=== PATIENT | female | born 1980 | race Caucasian/White ===

== ENCOUNTER 2018-07-17 11:04 | Outpatient (CLI) | payer OTHER, SELFPAY | END 2018-07-17 11:24 | PROVIDERS: PCP Internal Medicine; Visit Provider Advanced Practice Midwife | DX: Z34.91 Encounter for supervision of normal pregnancy, unspecified, first trimester (principal) | CPT/HCPCS: 36415; 86850; 86900; 86901 ==

== ENCOUNTER 2018-09-09 10:29 | Outpatient (CLI) | payer OTHER, SELFPAY ==
[2018-09-09 11:20] LABS: HCT 34.8 % (36.0-46.0); HGB 12.2 g/dL (12.0-15.5); Mean Corp. HGB Concentration 35.1 g/dL (32.0-36.0); Mean Corpuscular Hemoglobin 31.9 pg (27.0-33.0); Mean Corpuscular Volume 90.9 fL (80-95); Mean Platelet Volume 9.3 fL (8.0-11.0); Platelet Count 287 x1000/uL (130-400); RBC 3.83 m/cumm (4.00-5.20); RBC Distribution Width 12.8 % (11.7-14.6); White Blood Cell Count 10.56 k/cumm (4.4-10.8)
== END 2018-09-09 10:49 ==
PROVIDERS: PCP Internal Medicine; Visit Provider Advanced Practice Midwife
DX: Z34.92 Encounter for supervision of normal pregnancy, unspecified, second trimester (principal)
CPT/HCPCS: 36415; 85027

== ENCOUNTER 2018-10-04 09:32 | Outpatient (CLI) | payer OTHER, SELFPAY ==
[2018-10-04 11:41] LABS: *AMPHETAMINES SCREEN URINE Negative (Negative); *BARBITURATES SCREEN URINE Negative (Negative); *BENZODIAZEPINES SCREEN URINE Negative (Negative); Cannabinoids THC Negative (Negative); Cocaine Screen,Urine Negative (Negative); METHADONE URINE SCREEN Negative (Negative); OPIATES URINE SCREEN Negative (Negative); Tricyclic Antidepressants Negative (Negative)
[2018-10-07 11:55] LABS: HIV-1/2 Ag & Ab Screen Negative (NEGAT)
[2018-10-07 12:46] LABS: Syphilis Serology (RPR) Negative (Negative)
== END 2018-10-04 09:52 ==
PROVIDERS: PCP Internal Medicine; Visit Provider Nurse Practitioner
DX: Z34.92 Encounter for supervision of normal pregnancy, unspecified, second trimester (principal); Z11.4 Encounter for screening for human immunodeficiency virus [HIV]; Z11.3 Encounter for screening for infections with a predominantly sexual mode of transmission
CPT/HCPCS: 36415; 80307; 87389; 86592

== ENCOUNTER 2018-11-04 09:12 | Outpatient (CLI) | payer OTHER, SELFPAY ==
[2018-11-04 09:35] LABS: HCT 34.4 % (36.0-46.0); Mean Corp. HGB Concentration 34.9 g/dL (32.0-36.0); Mean Corpuscular Hemoglobin 32.5 pg (27.0-33.0); Mean Corpuscular Volume 93.2 fL (80-95); Mean Platelet Volume 9.4 fL (8.0-11.0); Platelet Count 313 x1000/uL (130-400); RBC 3.69 m/cumm (4.00-5.20); RBC Distribution Width 13.1 % (11.7-14.6); White Blood Cell Count 13.27 k/cumm (4.4-10.8)
[2018-11-04 09:41] LABS: Hemoglobin A1C 4.9 % (4.5-6.2)
== END 2018-11-04 09:32 ==
PROVIDERS: PCP Internal Medicine; Visit Provider Advanced Practice Midwife
DX: Z34.92 Encounter for supervision of normal pregnancy, unspecified, second trimester (principal)
CPT/HCPCS: 36415; 85027; 83036

== ENCOUNTER 2019-01-20 10:08 | Outpatient (CLI) | payer OTHER, SELFPAY ==
[2019-01-20 10:33] LABS: HCT 34.6 % (36.0-46.0); Mean Corp. HGB Concentration 34.7 g/dL (32.0-36.0); Mean Corpuscular Hemoglobin 32.1 pg (27.0-33.0); Mean Corpuscular Volume 92.5 fL (80-95); Platelet Count 267 x1000/uL (130-400); RBC 3.74 m/cumm (4.00-5.20); RBC Distribution Width 12.9 % (11.7-14.6); White Blood Cell Count 10.55 k/cumm (4.4-10.8)
[2019-01-20 11:26] LABS: Glucose 77 mg/dL (70-100)
== END 2019-01-20 10:28 ==
PROVIDERS: PCP Internal Medicine; Visit Provider Advanced Practice Midwife
DX: Z34.90 Encounter for supervision of normal pregnancy, unspecified, unspecified trimester (principal)
CPT/HCPCS: 36415; 82947; 85027; 83036

== ENCOUNTER 2019-01-20 12:16 | Outpatient (REF) | payer OTHER, SELFPAY | END 2019-01-20 12:36 | LOC: LBN 12:16 | PROVIDERS: PCP Internal Medicine; Visit Provider Advanced Practice Midwife | DX: Z34.90 Encounter for supervision of normal pregnancy, unspecified, unspecified trimester (principal) | CPT/HCPCS: 87081 ==

== ENCOUNTER 2019-02-20 08:44 | Outpatient (CLI) | payer OTHER, SELFPAY ==
[2019-02-20 09:14] LABS: HCT 38.1 % (36.0-46.0); Mean Corp. HGB Concentration 34.1 g/dL (32.0-36.0); Mean Corpuscular Hemoglobin 31.2 pg (27.0-33.0); Mean Corpuscular Volume 91.4 fL (80-95); Platelet Count 246 x1000/uL (130-400); RBC 4.17 m/cumm (4.00-5.20); White Blood Cell Count 9.26 k/cumm (4.4-10.8)
[2019-02-20 09:56] LABS: PROTEIN 9.4 mg/dL
[2019-02-20 09:59] LABS: COMMENT (LAB VIEW ONLY) 58.76 mg/dL; Prot/Crea Ur Ratio 0.15
[2019-02-20 10:12] LABS: ALT 230 U/L (12-78); AST 106 U/L (15-37); Albumin 2.8 g/dL (3.4-5.0); Alkaline Phosphatase 131 U/L (46-116); Bilirubin, Direct 0.15 mg/dL (0.00-0.20); Bilirubin, Total 0.4 mg/dL (0.2-1.0); CREATININE 0.77 mg/dL (0.55-1.02); Total Protein 7.2 g/dL (6.4-8.2)
[2019-02-20 11:37] LABS: Glucose 84 mg/dL (70-100)
== END 2019-02-20 09:04 ==
PROVIDERS: PCP Internal Medicine; Visit Provider Advanced Practice Midwife
DX: Z34.93 Encounter for supervision of normal pregnancy, unspecified, third trimester (principal); O13.9 Gestational [pregnancy-induced] hypertension without significant proteinuria, unspecified trimester
CPT/HCPCS: 36415; 80076; 82947; 85027; 82565; 84156; 84550

== ENCOUNTER 2019-02-20 11:40 | Inpatient (IN) | payer OTHER, SELFPAY ==
[2019-02-20] MEDS: Lactated Ringers 1,000 ML 30 ML IV (14:05)
[2019-02-20] MEDS: Normal Saline Flush 10 ML SYR IVP (15:21)
[2019-02-20] MEDS: Penicillin G POT. 5,000,000 UNITS in Normal Saline 100 ML 200 UNITS IVPB (15:28)
[2019-02-20 17:00] LABS: HCT 36.6 % (36.0-46.0); HGB 12.7 g/dL (12.0-15.5); Mean Corp. HGB Concentration 34.7 g/dL (32.0-36.0); Mean Corpuscular Hemoglobin 31.8 pg (27.0-33.0); Mean Corpuscular Volume 91.5 fL (80-95); Mean Platelet Volume 11.1 fL (8.0-11.0); Platelet Count 240 x1000/uL (130-400); RBC Distribution Width 12.9 % (11.7-14.6); White Blood Cell Count 9.45 k/cumm (4.4-10.8)
[2019-02-20 17:08] LABS: Glucose 119 mg/dL (70-100)
[2019-02-20 17:11] LABS: CREATININE 0.71 mg/dL (0.55-1.02); Uric Acid 6.6 mg/dL (2.6-6.0)
[2019-02-20 17:47] LABS: ALT 211 U/L (12-78); AST 97 U/L (15-37); Albumin 2.7 g/dL (3.4-5.0); Alkaline Phosphatase 122 U/L (46-116); Bilirubin, Direct 0.13 mg/dL (0.00-0.20); Bilirubin, Total 0.3 mg/dL (0.2-1.0); Total Protein 7.5 g/dL (6.4-8.2)
[2019-02-20] MEDS: miSOPROStol 25 MCG TAB SL (20:00)
[2019-02-21 02:24] LABS: Abs Immature Grans 0.06 k/cumm (0.0-0.09); Absolute Basophil Count 0.02 k/cumm (0.0-0.2); Absolute Eosinophil Count 0.02 k/cumm (0.0-0.7); Absolute Monocyte Count 1.14 k/cumm (0.11-0.7); Basophils % 0.1; Eosinophils % 0.1; HCT 36.9 % (36.0-46.0); HGB 12.8 g/dL (12.0-15.5); Immature Grans % 0.3; Lymphocytes % 10.2; Mean Corp. HGB Concentration 34.7 g/dL (32.0-36.0); Mean Corpuscular Hemoglobin 31.6 pg (27.0-33.0); Mean Corpuscular Volume 91.1 fL (80-95); Monocytes % 6.4; Neutrophils % 82.9; Platelet Count 230 x1000/uL (130-400); RBC 4.05 m/cumm (4.00-5.20); RBC Distribution Width 12.9 % (11.7-14.6)
[2019-02-21 02:25] LABS: Absolute Lymphocyte Count 1.82 k/cumm (1.2-3.4); Absolute Neutrophil Count 14.76 k/cumm (1.2-6.7)
[2019-02-21 02:34] LABS: ALT 231 U/L (12-78); AST 109 U/L (15-37); Albumin 2.7 g/dL (3.4-5.0); Alkaline Phosphatase 121 U/L (46-116); Anion Gap 13.7 mmol/L (3-11); BUN 9 mg/dL (7-18); Bilirubin, Total 0.5 mg/dL (0.2-1.0); CO2 21.3 mmol/L (21.0-32.0); CREATININE 0.64 mg/dL (0.55-1.02); Chloride 101 mmol/L (98-107); Glucose 82 mg/dL (70-100); Potassium 3.9 mmol/L (3.5-5.1); Sodium 136 mmol/L (136-145); Total Protein 7.3 g/dL (6.4-8.2)
[2019-02-21] MEDS: Normal Saline Flush 10 ML SYR IVP ×2 (05:06→10:49)
--- NOTE | 2019-02-21 07:37 | PGE_ITS ---
Date of Service Date of service: 02/20/19 Time of Service: 18:00 Assessment and Plan (1) : Current visit: No Status: Acute (2) Elevated liver enzymes: Current visit: Yes Status: Acute Certainly preeclampsia and HELLP syndrome are a consideration but in light of the fact that she is essentially normotensive other considerations could be cholestasis and acute fatty liver. Acute fatty liver also seems less likely. For now we will proceed with induction with misoprostol, cervical ripening balloon and eventually pitocin. Should her blood pressures become elevated or should we have any other indiction for preeclampsia will start on magnesium sulfate. Subjective Interval history since last seen: I was requested to evaluate the patient for elevated liver enzymes. She was found to have mildly elevated blodo pressure in the 130s on a couple of occasions. She has been asymptomatic denying headache or visual changes. She did have laboratory studies performed showing normal platelets and ALT and AST were elevated to 231 and 121. Protein/creatinine ratio was normal. She was admitted for induction of labor and since admission has been normotensive. Her course to this point has been uncomplicated. She is generally healthy with no chronic medical problems. Objective Objective Clinical Data: Abnormal lab results 02/20/19 02/20/19 02/20/19 Range/Units 16:43 16:43 16:43 WBC (4.4-10.8) k/cumm MPV 11.1 H (8.0-11.0) fL Absolute Neutrophils (1.2-6.7) k/cumm Absolute Monocytes (0.11-0.7) k/cumm Anion Gap (3-11) mmol/L Glucose 119 H (70-100) mg/dL Uric Acid 6.6 H (2.6-6.0) mg/dL AST 97 H (15-37) U/L ALT 211 H (12-78) U/L Alkaline Phosphatase 122 H (46-116) U/L Albumin 2.7 L (3.4-5.0) g/dL 02/21/19 02/21/19 Range/Units 02:07 02:07 WBC 17.80 H D (4.4-10.8) k/cumm MPV (8.0-11.0) fL Absolute Neutrophils 14.76 H (1.2-6.7) k/cumm Absolute Monocytes 1.14 H (0.11-0.7) k/cumm Anion Gap 13.7 H (3-11) mmol/L Glucose (70-100) mg/dL Uric Acid (2.6-6.0) mg/dL AST 109 H (15-37) U/L ALT 231 H (12-78) U/L Alkaline Phosphatase 121 H (46-116) U/L Albumin 2.7 L (3.4-5.0) g/dL Intake & Output 02/20/19 02/20/19 02/21/19 11:59 23:59 11:59 Intake Total 50 / 50 50 / 50 Balance 50 / 50 50 / 50 Intake: IV 50 / 50 50 / 50 Laboratory Results WBC 17.80 k/cumm (4.4-10.8) H D 02/21/19 02:07 RBC 4.05 m/cumm (4.00-5.20) 02/21/19 02:07 Hgb 12.8 g/dL (12.0-15.5) 02/21/19 02:07 Hct 36.9 % (36.0-46.0) 02/21/19 02:07 MCV 91.1 fL (80-95) 02/21/19 02:07 MCH 31.6 pg (27.0-33.0) 02/21/19 02:07 MCHC 34.7 g/dL (32.0-36.0) 02/21/19 02:07 RDW 12.9 % (11.7-14.6) 02/21/19 02:07 Plt Count 230 x1000/uL (130-400) 02/21/19 02:07 MPV 11.0 fL (8.0-11.0) 02/21/19 02:07 Immature Gran % 0.3 02/21/19 02:07 Neutrophils % 82.9 02/21/19 02:07 Lymphocytes % 10.2 02/21/19 02:07 Monocytes % 6.4 02/21/19 02:07 Eosinophils % 0.1 02/21/19 02:07 Basophils % 0.1 02/21/19 02:07 Absolute Neutrophils 14.76 k/cumm (1.2-6.7) H 02/21/19 02:07 Absolute Lymphocytes 1.82 k/cumm (1.2-3.4) 02/21/19 02:07 Absolute Monocytes 1.14 k/cumm (0.11-0.7) H 02/21/19 02:07 Absolute Eosinophils 0.02 k/cumm (0.0-0.7) 02/21/19 02:07 Absolute Basophils 0.02 k/cumm (0.0-0.2) 02/21/19 02:07 Sodium 136 mmol/L (136-145) 02/21/19 02:07 Potassium 3.9 mmol/L (3.5-5.1) 02/21/19 02:07 Chloride 101 mmol/L (98-107) 02/21/19 02:07 Carbon Dioxide 21.3 mmol/L (21.0-32.0) 02/21/19 02:07 Anion Gap 13.7 mmol/L (3-11) H 02/21/19 02:07 BUN 9 mg/dL (7-18) 02/21/19 02:07 Creatinine 0.64 mg/dL (0.55-1.02) 02/21/19 02:07 Estimated GFR/1.73 m2 >= 60.00 (mL/min/1.73m2) 02/21/19 02:07 Glucose 82 mg/dL (70-100) 02/21/19 02:07 Uric Acid Cancelled 02/20/19 Unknown Calcium 9.0 mg/dL (8.5-10.1) 02/21/19 02:07 Total Bilirubin 0.5 mg/dL (0.2-1.0) 02/21/19 02:07 Conjugated Bilirubin Cancelled 02/20/19 Unknown AST 109 U/L (15-37) H 02/21/19 02:07 ALT 231 U/L (12-78) H 02/21/19 02:07 Alkaline Phosphatase 121 U/L (46-116) H 02/21/19 02:07 Total Protein 7.3 g/dL (6.4-8.2) 02/21/19 02:07 Albumin 2.7 g/dL (3.4-5.0) L 02/21/19 02:07 Ur Random Creatinine Cancelled 02/20/19 16:30 U Random Total Protein Cancelled 02/20/19 16:30 U [place] Prot/Creat Ratio Cancelled 02/20/19 16:30 Patient ABO/Rh O Positive 02/20/19 16:43 Antibody Screen Negative 02/20/19 16:43
--- NOTE | 2019-02-21 07:51 | W.PM.PROGNOT ---
Date of Service Date of service: 02/21/19 Time of Service: 07:51 Assessment and Plan (1) Elevated liver enzymes: Current visit: Yes Status: Acute (2) : Current visit: No Status: Acute Plan to start pitocin this morning to continue induction of labor. The remainder of the plan remains unchanged. Will consider magnesium if blood pressures become elevated. section for usual indications. Repeat labs later this morning. Subjective Interval history since last seen: Cervical ripening balloon was expelled this morning and cervix is now 4 cm in dilatation. She is having regular and intermittently painful contractions. She has been normotensive overnight and continues to have no symptoms suggestive of preeclampsia. Laboratory studies have remained unchanged and we will continue to check every 8 hours for now. Exam Resp Auscultation: clear to auscultation bilaterally Cardio Rate: regular rate Rhythm: regular rhythm Objective Objective Clinical Data: Abnormal lab results 02/20/19 02/20/19 02/20/19 Range/Units 16:43 16:43 16:43 WBC (4.4-10.8) k/cumm MPV 11.1 H (8.0-11.0) fL Absolute Neutrophils (1.2-6.7) k/cumm Absolute Monocytes (0.11-0.7) k/cumm Anion Gap (3-11) mmol/L Glucose 119 H (70-100) mg/dL Uric Acid 6.6 H (2.6-6.0) mg/dL AST 97 H (15-37) U/L ALT 211 H (12-78) U/L Alkaline Phosphatase 122 H (46-116) U/L Albumin 2.7 L (3.4-5.0) g/dL 02/21/19 02/21/19 Range/Units 02:07 02:07 WBC 17.80 H D (4.4-10.8) k/cumm MPV (8.0-11.0) fL Absolute Neutrophils 14.76 H (1.2-6.7) k/cumm Absolute Monocytes 1.14 H (0.11-0.7) k/cumm Anion Gap 13.7 H (3-11) mmol/L Glucose (70-100) mg/dL Uric Acid (2.6-6.0) mg/dL AST 109 H (15-37) U/L ALT 231 H (12-78) U/L Alkaline Phosphatase 121 H (46-116) U/L Albumin 2.7 L (3.4-5.0) g/dL Intake & Output 02/20/19 02/20/19 02/21/19 11:59 23:59 11:59 Intake Total 50 / 50 50 / 50 Balance 50 / 50 50 / 50 Intake: IV 50 / 50 50 / 50 Laboratory Results WBC 17.80 k/cumm (4.4-10.8) H D 02/21/19 02:07 RBC 4.05 m/cumm (4.00-5.20) 02/21/19 02:07 Hgb 12.8 g/dL (12.0-15.5) 02/21/19 02:07 Hct 36.9 % (36.0-46.0) 02/21/19 02:07 MCV 91.1 fL (80-95) 02/21/19 02:07 MCH 31.6 pg (27.0-33.0) 02/21/19 02:07 MCHC 34.7 g/dL (32.0-36.0) 02/21/19 02:07 RDW 12.9 % (11.7-14.6) 02/21/19 02:07 Plt Count 230 x1000/uL (130-400) 02/21/19 02:07 MPV 11.0 fL (8.0-11.0) 02/21/19 02:07 Immature Gran % 0.3 02/21/19 02:07 Neutrophils % 82.9 02/21/19 02:07 Lymphocytes % 10.2 02/21/19 02:07 Monocytes % 6.4 02/21/19 02:07 Eosinophils % 0.1 02/21/19 02:07 Basophils % 0.1 02/21/19 02:07 Absolute Neutrophils 14.76 k/cumm (1.2-6.7) H 02/21/19 02:07 Absolute Lymphocytes 1.82 k/cumm (1.2-3.4) 02/21/19 02:07 Absolute Monocytes 1.14 k/cumm (0.11-0.7) H 02/21/19 02:07 Absolute Eosinophils 0.02 k/cumm (0.0-0.7) 02/21/19 02:07 Absolute Basophils 0.02 k/cumm (0.0-0.2) 02/21/19 02:07 Sodium 136 mmol/L (136-145) 02/21/19 02:07 Potassium 3.9 mmol/L (3.5-5.1) 02/21/19 02:07 Chloride 101 mmol/L (98-107) 02/21/19 02:07 Carbon Dioxide 21.3 mmol/L (21.0-32.0) 02/21/19 02:07 Anion Gap 13.7 mmol/L (3-11) H 02/21/19 02:07 BUN 9 mg/dL (7-18) 02/21/19 02:07 Creatinine 0.64 mg/dL (0.55-1.02) 02/21/19 02:07 Estimated GFR/1.73 m2 >= 60.00 (mL/min/1.73m2) 02/21/19 02:07 Glucose 82 mg/dL (70-100) 02/21/19 02:07 Uric Acid Cancelled 02/20/19 Unknown Calcium 9.0 mg/dL (8.5-10.1) 02/21/19 02:07 Total Bilirubin 0.5 mg/dL (0.2-1.0) 02/21/19 02:07 Conjugated Bilirubin Cancelled 02/20/19 Unknown AST 109 U/L (15-37) H 02/21/19 02:07 ALT 231 U/L (12-78) H 02/21/19 02:07 Alkaline Phosphatase 121 U/L (46-116) H 02/21/19 02:07 Total Protein 7.3 g/dL (6.4-8.2) 02/21/19 02:07 Albumin 2.7 g/dL (3.4-5.0) L 02/21/19 02:07 Ur Random Creatinine Cancelled 02/20/19 16:30 U Random Total Protein Cancelled 02/20/19 16:30 U [place] Prot/Creat Ratio Cancelled 02/20/19 16:30 Patient ABO/Rh O Positive 02/20/19 16:43 Antibody Screen Negative 02/20/19 16:43
[2019-02-21 09:05] LABS: HGB 12.7 g/dL (12.0-15.5); Mean Corp. HGB Concentration 34.3 g/dL (32.0-36.0); Mean Corpuscular Hemoglobin 31.6 pg (27.0-33.0); Platelet Count 235 x1000/uL (130-400); RBC 4.02 m/cumm (4.00-5.20)
[2019-02-21 09:19] LABS: ALT 273 U/L (12-78); AST 140 U/L (15-37); Albumin 2.8 g/dL (3.4-5.0); Alkaline Phosphatase 128 U/L (46-116); Anion Gap 13.1 mmol/L (3-11); BUN 9 mg/dL (7-18); Bilirubin, Total 0.6 mg/dL (0.2-1.0); CO2 20.9 mmol/L (21.0-32.0); CREATININE 0.67 mg/dL (0.55-1.02); Chloride 100 mmol/L (98-107); Glucose 85 mg/dL (70-100); Sodium 134 mmol/L (136-145); Total Protein 7.5 g/dL (6.4-8.2)
--- NOTE | 2019-02-21 10:12 | PGE_ITS ---
Date of Service Date of service: 02/21/19 Time of Service: 10:10 Assessment and Plan (1) HELLP (hemolytic anemia/elev liver enzymes/low platelets in ): Current visit: Yes Status: Acute It is likely that the elevation in LFTs represent HELLP syndrome. Will start on Magnesium sulfate infusion at this point and continue serial laboratory studies. Subjective Interval history since last seen: The patient was seen and evaluated. Most recent blood pressure was 140/82. Last laboratory studies show stable platelets but LFTs are trending upward. She continues to be asymptomatic. Objective Objective Clinical Data: Abnormal lab results 02/20/19 02/20/19 02/20/19 Range/Units 16:43 16:43 16:43 WBC (4.4-10.8) k/cumm MPV 11.1 H (8.0-11.0) fL Absolute Neutrophils (1.2-6.7) k/cumm Absolute Monocytes (0.11-0.7) k/cumm Sodium (136-145) mmol/L Carbon Dioxide (21.0-32.0) mmol/L Anion Gap (3-11) mmol/L Glucose 119 H (70-100) mg/dL Uric Acid 6.6 H (2.6-6.0) mg/dL AST 97 H (15-37) U/L ALT 211 H (12-78) U/L Alkaline Phosphatase 122 H (46-116) U/L Albumin 2.7 L (3.4-5.0) g/dL 02/21/19 02/21/19 02/21/19 Range/Units 02:07 02:07 08:45 WBC 17.80 H D (4.4-10.8) k/cumm MPV (8.0-11.0) fL Absolute Neutrophils 14.76 H (1.2-6.7) k/cumm Absolute Monocytes 1.14 H (0.11-0.7) k/cumm Sodium 134 L (136-145) mmol/L Carbon Dioxide 20.9 L (21.0-32.0) mmol/L Anion Gap 13.7 H 13.1 H (3-11) mmol/L Glucose (70-100) mg/dL Uric Acid (2.6-6.0) mg/dL AST 109 H 140 H (15-37) U/L ALT 231 H 273 H (12-78) U/L Alkaline Phosphatase 121 H 128 H (46-116) U/L Albumin 2.7 L 2.8 L (3.4-5.0) g/dL 02/21/19 Range/Units 08:45 WBC 17.90 H (4.4-10.8) k/cumm MPV (8.0-11.0) fL Absolute Neutrophils (1.2-6.7) k/cumm Absolute Monocytes (0.11-0.7) k/cumm Sodium (136-145) mmol/L Carbon Dioxide (21.0-32.0) mmol/L Anion Gap (3-11) mmol/L Glucose (70-100) mg/dL Uric Acid (2.6-6.0) mg/dL AST (15-37) U/L ALT (12-78) U/L Alkaline Phosphatase (46-116) U/L Albumin (3.4-5.0) g/dL Intake & Output 02/20/19 02/20/19 02/21/19 11:59 23:59 11:59 Intake Total 50 / 50 100 / 100 Balance 50 / 50 100 / 100 Intake: IV 50 / 50 100 / 100 Laboratory Results WBC 17.90 k/cumm (4.4-10.8) H 02/21/19 08:45 RBC 4.02 m/cumm (4.00-5.20) 02/21/19 08:45 Hgb 12.7 g/dL (12.0-15.5) 02/21/19 08:45 Hct 37.0 % (36.0-46.0) 02/21/19 08:45 MCV 92.0 fL (80-95) 02/21/19 08:45 MCH 31.6 pg (27.0-33.0) 02/21/19 08:45 MCHC 34.3 g/dL (32.0-36.0) 02/21/19 08:45 RDW 13.0 % (11.7-14.6) 02/21/19 08:45 Plt Count 235 x1000/uL (130-400) 02/21/19 08:45 MPV 11.0 fL (8.0-11.0) 02/21/19 08:45 Immature Gran % 0.3 02/21/19 02:07 Neutrophils % 82.9 02/21/19 02:07 Lymphocytes % 10.2 02/21/19 02:07 Monocytes % 6.4 02/21/19 02:07 Eosinophils % 0.1 02/21/19 02:07 Basophils % 0.1 02/21/19 02:07 Absolute Neutrophils 14.76 k/cumm (1.2-6.7) H 02/21/19 02:07 Absolute Lymphocytes 1.82 k/cumm (1.2-3.4) 02/21/19 02:07 Absolute Monocytes 1.14 k/cumm (0.11-0.7) H 02/21/19 02:07 Absolute Eosinophils 0.02 k/cumm (0.0-0.7) 02/21/19 02:07 Absolute Basophils 0.02 k/cumm (0.0-0.2) 02/21/19 02:07 Sodium 134 mmol/L (136-145) L 02/21/19 08:45 Potassium 4.0 mmol/L (3.5-5.1) 02/21/19 08:45 Chloride 100 mmol/L (98-107) 02/21/19 08:45 Carbon Dioxide 20.9 mmol/L (21.0-32.0) L 02/21/19 08:45 Anion Gap 13.1 mmol/L (3-11) H 02/21/19 08:45 BUN 9 mg/dL (7-18) 02/21/19 08:45 Creatinine 0.67 mg/dL (0.55-1.02) 02/21/19 08:45 Estimated GFR/1.73 m2 >= 60.00 (mL/min/1.73m2) 02/21/19 08:45 Glucose 85 mg/dL (70-100) 02/21/19 08:45 Uric Acid Cancelled 02/20/19 Unknown Calcium 9.0 mg/dL (8.5-10.1) 02/21/19 08:45 Total Bilirubin 0.6 mg/dL (0.2-1.0) 02/21/19 08:45 Conjugated Bilirubin Cancelled 02/20/19 Unknown AST 140 U/L (15-37) H 02/21/19 08:45 ALT 273 U/L (12-78) H 02/21/19 08:45 Alkaline Phosphatase 128 U/L (46-116) H 02/21/19 08:45 Total Protein 7.5 g/dL (6.4-8.2) 02/21/19 08:45 Albumin 2.8 g/dL (3.4-5.0) L 02/21/19 08:45 Ur Random Creatinine Cancelled 02/20/19 16:30 U Random Total Protein Cancelled 02/20/19 16:30 U [place] Prot/Creat Ratio Cancelled 02/20/19 16:30 Patient ABO/Rh O Positive 02/20/19 16:43 Antibody Screen Negative 02/20/19 16:43
[2019-02-21] MEDS: MAGNESIUM SULFATE 20 GM/500 ML BAG IV (19:40)
[2019-02-21 19:50] LABS: HCT 36.1 % (36.0-46.0); HGB 12.5 g/dL (12.0-15.5); Mean Corp. HGB Concentration 34.6 g/dL (32.0-36.0); Mean Corpuscular Hemoglobin 31.8 pg (27.0-33.0); Mean Corpuscular Volume 91.9 fL (80-95); Mean Platelet Volume 10.9 fL (8.0-11.0); Platelet Count 224 x1000/uL (130-400); RBC 3.93 m/cumm (4.00-5.20); RBC Distribution Width 13.1 % (11.7-14.6); White Blood Cell Count 21.06 k/cumm (4.4-10.8)
[2019-02-21 20:01] LABS: ALT 323 U/L (12-78); AST 176 U/L (15-37); Albumin 2.7 g/dL (3.4-5.0); Alkaline Phosphatase 132 U/L (46-116); Anion Gap 16.5 mmol/L (3-11); BUN 7 mg/dL (7-18); Bilirubin, Total 0.7 mg/dL (0.2-1.0); CO2 17.5 mmol/L (21.0-32.0); CREATININE 0.67 mg/dL (0.55-1.02); Calcium 7.6 mg/dL (8.5-10.1); Chloride 97 mmol/L (98-107); Glucose 76 mg/dL (70-100); Potassium 3.7 mmol/L (3.5-5.1); Sodium 131 mmol/L (136-145); Total Protein 7.6 g/dL (6.4-8.2)
--- NOTE | 2019-02-21 21:01 | W.PM.PROGNOT ---
Date of Service Date of service: 02/21/19 Time of Service: 21:01 Assessment and Plan (1) HELLP (hemolytic anemia/elev liver enzymes/low platelets in ): Current visit: Yes Status: Acute I reviewed my concerns with the patient and her . She is greater than 24 hours with ruptured membranes and has an increased risk of intramniotic infection. Laboratory studies do indicate worsening trending in terms of her LFTs and she has made essentially no progress in her labor throughout the day. My recommendation at this point is to proceed with section. Risks of surgery including hemorrhage, infection and injury to other organs such as bowel and bladder were reviewed. All questions were answered to the patient's satisfaction and consent was obtained. (2) Severe preeclampsia: Current visit: Yes Status: Acute Subjective Interval history since last seen: Patient seen and evaluated. I did examine her around 5 pm and cervix was 5 cm at that time. She was rechecked at approximatley 8 pm with no change and IUPC was placed. Pitocin is at 16 mu/min and contractions have been adequate. Repeat laboratory studies show an elevation in WBC count and liver enzymes continue to trend upward. The heart tracing is category I. Objective Objective Clinical Data: Abnormal lab results 02/21/19 02/21/19 02/21/19 Range/Units 02:07 02:07 08:45 WBC 17.80 H D (4.4-10.8) k/cumm RBC (4.00-5.20) m/cumm Absolute Neutrophils 14.76 H (1.2-6.7) k/cumm Absolute Monocytes 1.14 H (0.11-0.7) k/cumm Sodium 134 L (136-145) mmol/L Chloride (98-107) mmol/L Carbon Dioxide 20.9 L (21.0-32.0) mmol/L Anion Gap 13.7 H 13.1 H (3-11) mmol/L Calcium (8.5-10.1) mg/dL AST 109 H 140 H (15-37) U/L ALT 231 H 273 H (12-78) U/L Alkaline Phosphatase 121 H 128 H (46-116) U/L Albumin 2.7 L 2.8 L (3.4-5.0) g/dL 02/21/19 02/21/19 02/21/19 Range/Units 08:45 19:40 19:40 WBC 17.90 H 21.06 H (4.4-10.8) k/cumm RBC 3.93 L (4.00-5.20) m/cumm Absolute Neutrophils (1.2-6.7) k/cumm Absolute Monocytes (0.11-0.7) k/cumm Sodium 131 L (136-145) mmol/L Chloride 97 L (98-107) mmol/L Carbon Dioxide 17.5 L (21.0-32.0) mmol/L Anion Gap 16.5 H (3-11) mmol/L Calcium 7.6 L (8.5-10.1) mg/dL AST 176 H (15-37) U/L ALT 323 H (12-78) U/L Alkaline Phosphatase 132 H (46-116) U/L Albumin 2.7 L (3.4-5.0) g/dL Intake & Output 02/20/19 02/21/19 02/21/19 23:59 11:59 23:59 Intake Total 50 / 50 150 / 250 100 / 250 Balance 50 / 50 150 / 250 100 / 250 Intake: IV 50 / 50 150 / 250 100 / 250 Laboratory Results WBC 21.06 k/cumm (4.4-10.8) H 02/21/19 19:40 RBC 3.93 m/cumm (4.00-5.20) L 02/21/19 19:40 Hgb 12.5 g/dL (12.0-15.5) 02/21/19 19:40 Hct 36.1 % (36.0-46.0) 02/21/19 19:40 MCV 91.9 fL (80-95) 02/21/19 19:40 MCH 31.8 pg (27.0-33.0) 02/21/19 19:40 MCHC 34.6 g/dL (32.0-36.0) 02/21/19 19:40 RDW 13.1 % (11.7-14.6) 02/21/19 19:40 Plt Count 224 x1000/uL (130-400) 02/21/19 19:40 MPV 10.9 fL (8.0-11.0) 02/21/19 19:40 Immature Gran % 0.3 02/21/19 02:07 Neutrophils % 82.9 02/21/19 02:07 Lymphocytes % 10.2 02/21/19 02:07 Monocytes % 6.4 02/21/19 02:07 Eosinophils % 0.1 02/21/19 02:07 Basophils % 0.1 02/21/19 02:07 Absolute Neutrophils 14.76 k/cumm (1.2-6.7) H 02/21/19 02:07 Absolute Lymphocytes 1.82 k/cumm (1.2-3.4) 02/21/19 02:07 Absolute Monocytes 1.14 k/cumm (0.11-0.7) H 02/21/19 02:07 Absolute Eosinophils 0.02 k/cumm (0.0-0.7) 02/21/19 02:07 Absolute Basophils 0.02 k/cumm (0.0-0.2) 02/21/19 02:07 Sodium 131 mmol/L (136-145) L 02/21/19 19:40 Potassium 3.7 mmol/L (3.5-5.1) 02/21/19 19:40 Chloride 97 mmol/L (98-107) L 02/21/19 19:40 Carbon Dioxide 17.5 mmol/L (21.0-32.0) L 02/21/19 19:40 Anion Gap 16.5 mmol/L (3-11) H 02/21/19 19:40 BUN 7 mg/dL (7-18) 02/21/19 19:40 Creatinine 0.67 mg/dL (0.55-1.02) 02/21/19 19:40 Estimated GFR/1.73 m2 >= 60.00 (mL/min/1.73m2) 02/21/19 19:40 Glucose 76 mg/dL (70-100) 02/21/19 19:40 Uric Acid Cancelled 02/20/19 Unknown Calcium 7.6 mg/dL (8.5-10.1) L 02/21/19 19:40 Total Bilirubin 0.7 mg/dL (0.2-1.0) 02/21/19 19:40 Conjugated Bilirubin Cancelled 02/20/19 Unknown AST 176 U/L (15-37) H 02/21/19 19:40 ALT 323 U/L (12-78) H 02/21/19 19:40 Alkaline Phosphatase 132 U/L (46-116) H 02/21/19 19:40 Total Protein 7.6 g/dL (6.4-8.2) 02/21/19 19:40 Albumin 2.7 g/dL (3.4-5.0) L 02/21/19 19:40 Ur Random Creatinine Cancelled 02/20/19 16:30 U Random Total Protein Cancelled 02/20/19 16:30 U [place] Prot/Creat Ratio Cancelled 02/20/19 16:30 Patient ABO/Rh O Positive 02/20/19 16:43 Antibody Screen Negative 02/20/19 16:43
[2019-02-21] MEDS: Sodium Citrate 30 ML CUP PO (21:24)
[2019-02-21] MEDS: ceFAZolin 2,000 MG in Normal Saline 100 ML 200 MG IVPB (21:25)
[2019-02-21] MEDS: Lactated Ringers 1,000 ML 30 ML IV (22:00)
[2019-02-21] MEDS: Carboprost 250 MCG/ML AMP (22:26)
[2019-02-22] MEDS: MAGNESIUM SULFATE 20 GM/500 ML BAG IV ×2 (06:38→16:49)
[2019-02-22 07:58] LABS: HCT 32.8 % (36.0-46.0); HGB 11.2 g/dL (12.0-15.5); Mean Corp. HGB Concentration 34.1 g/dL (32.0-36.0); Mean Corpuscular Hemoglobin 31.5 pg (27.0-33.0); Mean Corpuscular Volume 92.4 fL (80-95); Mean Platelet Volume 10.8 fL (8.0-11.0); Platelet Count 219 x1000/uL (130-400); RBC 3.55 m/cumm (4.00-5.20); White Blood Cell Count 21.03 k/cumm (4.4-10.8)
[2019-02-22 08:05] LABS: ALT 320 U/L (12-78); AST 179 U/L (15-37); Albumin 2.2 g/dL (3.4-5.0); Alkaline Phosphatase 107 U/L (46-116); Anion Gap 9.1 mmol/L (3-11); BUN 8 mg/dL (7-18); Bilirubin, Total 0.9 mg/dL (0.2-1.0); CO2 21.9 mmol/L (21.0-32.0); CREATININE 0.64 mg/dL (0.55-1.02); Calcium 6.6 mg/dL (8.5-10.1); Chloride 97 mmol/L (98-107); Glucose 90 mg/dL (70-100); Potassium 3.8 mmol/L (3.5-5.1); Sodium 128 mmol/L (136-145); Total Protein 6.5 g/dL (6.4-8.2)
[2019-02-22 10:04] LABS: Magnesium 6.2 mg/dL (1.8-2.4)
[2019-02-22] MEDS: Normal Saline Flush 10 ML SYR IVP ×2 (10:36→20:03)
[2019-02-22] MEDS: Lactated Ringers 1,000 ML 75 ML IV (10:37)
[2019-02-22] MEDS: Docusate Sodium 100 MG CAP PO (16:51)
--- NOTE | 2019-02-22 17:49 | W.PM.OP ---
Date of service: 02/21/19 Time of Service: 23:00 Operative Note DATE OF PROCEDURE: 02/21/19 PRE-OP DIAGNOSIS: 1.Severe preeclampsia with help syndrome. 2. FTP following IOL POST-OP DIAGNOSIS: same PROCEDURE: Primary low transverse section SURGEON: Seymour Iverson NEW ORDER CLERK: Niecy Monterroso ANESTHESIA: spinal ESTIMATED BLOOD LOSS: 700 PATHOLOGY: none sent COMPLICATIONS: None Patient was transported to: floor Patient's condition: stable Procedure Description: The patient was taken to the operating room and after adequate level of spinal anesthesia was obtained the patient was placed in supine position with a left lateral tilt. The patient was prepped and draped in usual sterile manner. A david catheter had been placed in the bladder draining clear urine. A Pfannenstiel skin incision was then made with a #10 blade scalpel and sharp dissection was carried down to the underlying layer fascia. The fascia was incised in the midline with a scalpel and the incision was carried laterally in either direction with Ríos scissors. The superior and inferior aspects of the fascial incision were dissected off the underlying layer rectus muscles using both blunt and sharp dissection. The rectus muscles were divided in the midline along the linea alba and the peritoneum was entered sharply. The peritoneal incision was extended superiorly to fairly with blunt and sharp dissection. A bladder blade was inserted. The vesicouterine flap was tented up with pickups and incised sharply with Metzenbaum scissors and the incision was carried laterally in either direction with the scissors. The bladder flap was then created digitally. The lower uterine segment was incised in a transverse manner with the scalpel and the incision was carried laterally in either direction by stretch. was found in cephalic presentation and this was a difficult extraction. Forceps were applied as an assist. The was delivered atraumatically. Mouth and nose were suctioned. The cord was clamped and cut. The infant was handed off to the awaiting lan analyst. Uterus was cleared of all clots and debris. The uterine incision was closed with a running lock stitch of #1 chromic. A second indicating layer of #1 chromic in running fashion was used to take the stasis. The vesicouterine flap was reapproximated with running stitch of 3-0 Vicryl. The uterus was returned to the abdomen. The gutters were cleared of all clots and debris. The peritoneum was closed with a running stitch of 2-0 Vicryl. The subfascial space was thoroughly inspected and limited use of the Bovie cautery was used to obtain hemostasis. The fascia was closed with a running stitch of 0 Vicryl. The subcutaneous tissues were closed with interrupted sutures of 3-0 Vicryl. The skin was closed with a running subcuticular stitch for Monocryl and Dermabond was applied. The procedure was concluded at this point. Sponge lap needle counts were correct at the conclusion of the procedure and the patient tolerated the procedure well and was transferred to the floor in stable condition.
--- NOTE | 2019-02-22 17:55 | ROE_ITS ---
Date of service: 02/21/19 Time of Service: 23:00 Operative Note DATE OF PROCEDURE: 02/21/19 PRE-OP DIAGNOSIS: 1.Severe preeclampsia with help syndrome. 2. FTP following IOL POST-OP DIAGNOSIS: same PROCEDURE: Primary low transverse section SURGEON: Seymour Iverson RESEARCH ASSOCIATE PROFESSOR: Niecy Monterroso ANESTHESIA: spinal ESTIMATED BLOOD LOSS: 700 PATHOLOGY: none sent COMPLICATIONS: None Patient was transported to: floor Patient's condition: stable Procedure Description: The patient was taken to the operating room and after adequate level of spinal anesthesia was obtained the patient was placed in supine position with a left lateral tilt. The patient was prepped and draped in usual sterile manner. A david catheter had been placed in the bladder draining clear urine. A Pfannenstiel skin incision was then made with a #10 blade scalpel and sharp dissection was carried down to the underlying layer fascia. The fascia was incised in the midline with a scalpel and the incision was carried laterally in either direction with Ríos scissors. The superior and inferior aspects of the fascial incision were dissected off the underlying layer rectus muscles using both blunt and sharp dissection. The rectus muscles were divided in the midline along the linea alba and the peritoneum was entered sharply. The peritoneal incision was extended superiorly to fairly with blunt a nd sharp dissection. A bladder blade was inserted. The vesicouterine flap was tented up with pickups and incised sharply with Metzenbaum scissors and the incision was carried laterally in either direction with the scissors. The bladder flap was then created digitally. The lower uterine segment was incised in a transverse manner with the scalpel and the incision was carried laterally in either direction by stretch. was found in cephalic presentation and this was a difficult extraction. Forceps were applied as an assist. The infant was delivered atraumatically. Mouth and nose were suctioned. The cord was clamped and cut. The infant was handed off to the awaiting basket patcher. Uterus was cleared of all clots and debris. The uterine incision was closed with a running lock stitch of #1 chromic. A second indicating layer of #1 chromic in running fashion was used to take the stasis. The vesicouterine flap was reapproximated with running stitch of 3-0 Vicryl. The uterus was returned to the abdomen. The gutters were cleared of all clots and debris. The peritoneum was closed with a running stitch of 2-0 Vicryl. The subfascial space was thoroughly inspected and limited use of the Bovie cautery was used to obtain hemostasis. The fascia was closed with a running stitch of 0 Vicryl. The subcutaneous tissues were closed with interrupted sutures of 3-0 Vicryl. The skin was closed with a running subcuticular stitch for Monocryl and Dermabond was applied. The procedure was concluded at this point. Sponge lap needle counts were correct at the conclusion of the procedure and the patient tolerated the procedure well and was transferred to the floor in stable condition.
[2019-02-22] MEDS: Ketorolac 30 MG/ML VIAL IVP (20:02)
[2019-02-23] MEDS: Ketorolac 30 MG/ML VIAL IVP ×4 (02:11→20:12)
[2019-02-23] MEDS: Normal Saline Flush 10 ML SYR IVP ×4 (02:12→20:14)
[2019-02-23 07:28] LABS: HCT 29.1 % (36.0-46.0); HGB 9.8 g/dL (12.0-15.5); Mean Corp. HGB Concentration 33.7 g/dL (32.0-36.0); Mean Corpuscular Hemoglobin 31.6 pg (27.0-33.0); Mean Corpuscular Volume 93.9 fL (80-95); Mean Platelet Volume 10.5 fL (8.0-11.0); Platelet Count 205 x1000/uL (130-400); RBC Distribution Width 13.1 % (11.7-14.6); White Blood Cell Count 12.19 k/cumm (4.4-10.8)
[2019-02-23 08:27] LABS: ALT 313 U/L (12-78); AST 168 U/L (15-37); Albumin 2.1 g/dL (3.4-5.0); Alkaline Phosphatase 104 U/L (46-116); Anion Gap 7.8 mmol/L (3-11); BUN 9 mg/dL (7-18); Bilirubin, Total 0.5 mg/dL (0.2-1.0); CO2 26.2 mmol/L (21.0-32.0); CREATININE 0.62 mg/dL (0.55-1.02); Calcium 7.2 mg/dL (8.5-10.1); Chloride 101 mmol/L (98-107); Glucose 76 mg/dL (70-100); Potassium 3.7 mmol/L (3.5-5.1); Sodium 135 mmol/L (136-145); Total Protein 6.4 g/dL (6.4-8.2)
--- NOTE | 2019-02-23 09:08 | W.PM.PROGNOT ---
Date of Service Date of service: 02/23/19 Time of Service: 09:08 Assessment and Plan (1) Severe preeclampsia: Current visit: No Status: Acute (2) S/P section: Current visit: Yes Status: Acute Magnesium discontinued. Urine output has been good. Blood pressures are all normal range. LFTs this morning show slight trend downward. Will repeat tomorrow morning. I discussed postoperative care and surveillance. I would have the patient follow up in the clinic within one week postoperatively for blood pressure check and repeat laboratory studies. Plan for possible discharge home tomorrow. Subjective Interval history since last seen: Doing well this morning. Magnesium was discontinued last evening. Has been ambulatory within the room. Pain is well controlled. Denies headache or visual changes. Tolerating regular diet. Exam Resp Auscultation: clear to auscultation bilaterally Cardio Rate: regular rate Rhythm: regular rhythm GI Other: Abdomen is soft. Appropriately tender. Incision is C/D/I Objective Objective Clinical Data: Abnormal lab results 02/22/19 02/23/19 02/23/19 Range/Units 07:20 07:04 07:04 WBC 12.19 H D (4.4-10.8) k/cumm RBC 3.10 L (4.00-5.20) m/cumm Hgb 9.8 L (12.0-15.5) g/dL Hct 29.1 L (36.0-46.0) % Sodium 135 L (136-145) mmol/L Calcium 7.2 L (8.5-10.1) mg/dL Magnesium 6.2 H* (1.8-2.4) mg/dL AST 168 H (15-37) U/L ALT 313 H (12-78) U/L Albumin 2.1 L (3.4-5.0) g/dL Vital Signs Pain Level 2 02/23/19 08:00 Intake & Output 02/22/19 02/22/19 02/23/19 11:59 23:59 11:59 Intake Total 1335 / 2235 900 / 2235 Balance 1335 / 2235 900 / 2235 Intake: IV 1335 / 2235 900 / 2235 Laboratory Results WBC 12.19 k/cumm (4.4-10.8) H D 02/23/19 07:04 RBC 3.10 m/cumm (4.00-5.20) L 02/23/19 07:04 Hgb 9.8 g/dL (12.0-15.5) L 02/23/19 07:04 Hct 29.1 % (36.0-46.0) L 02/23/19 07:04 MCV 93.9 fL (80-95) 02/23/19 07:04 MCH 31.6 pg (27.0-33.0) 02/23/19 07:04 MCHC 33.7 g/dL (32.0-36.0) 02/23/19 07:04 RDW 13.1 % (11.7-14.6) 02/23/19 07:04 Plt Count 205 x1000/uL (130-400) 02/23/19 07:04 MPV 10.5 fL (8.0-11.0) 02/23/19 07:04 Immature Gran % 0.3 02/21/19 02:07 Neutrophils % 82.9 02/21/19 02:07 Lymphocytes % 10.2 02/21/19 02:07 Monocytes % 6.4 02/21/19 02:07 Eosinophils % 0.1 02/21/19 02:07 Basophils % 0.1 02/21/19 02:07 Absolute Neutrophils 14.76 k/cumm (1.2-6.7) H 02/21/19 02:07 Absolute Lymphocytes 1.82 k/cumm (1.2-3.4) 02/21/19 02:07 Absolute Monocytes 1.14 k/cumm (0.11-0.7) H 02/21/19 02:07 Absolute Eosinophils 0.02 k/cumm (0.0-0.7) 02/21/19 02:07 Absolute Basophils 0.02 k/cumm (0.0-0.2) 02/21/19 02:07 Sodium 135 mmol/L (136-145) L 02/23/19 07:04 Potassium 3.7 mmol/L (3.5-5.1) 02/23/19 07:04 Chloride 101 mmol/L (98-107) 02/23/19 07:04 Carbon Dioxide 26.2 mmol/L (21.0-32.0) 02/23/19 07:04 Anion Gap 7.8 mmol/L (3-11) 02/23/19 07:04 BUN 9 mg/dL (7-18) 02/23/19 07:04 Creatinine 0.62 mg/dL (0.55-1.02) 02/23/19 07:04 Estimated GFR/1.73 m2 >= 60.00 (mL/min/1.73m2) 02/23/19 07:04 Glucose 76 mg/dL (70-100) 02/23/19 07:04 Uric Acid Cancelled 02/20/19 Unknown Calcium 7.2 mg/dL (8.5-10.1) L 02/23/19 07:04 Magnesium 6.2 mg/dL (1.8-2.4) H* 02/22/19 07:20 Total Bilirubin 0.5 mg/dL (0.2-1.0) 02/23/19 07:04 Conjugated Bilirubin Cancelled 02/20/19 Unknown AST 168 U/L (15-37) H 02/23/19 07:04 ALT 313 U/L (12-78) H 02/23/19 07:04 Alkaline Phosphatase 104 U/L (46-116) 02/23/19 07:04 Total Protein 6.4 g/dL (6.4-8.2) 02/23/19 07:04 Albumin 2.1 g/dL (3.4-5.0) L 02/23/19 07:04 Ur Random Creatinine Cancelled 02/20/19 16:30 U Random Total Protein Cancelled 02/20/19 16:30 U [place] Prot/Creat Ratio Cancelled 02/20/19 16:30 Patient ABO/Rh O Positive 02/20/19 16:43 Antibody Screen Negative 02/20/19 16:43 Crossmatch See Detail 02/20/19 16:43
[2019-02-23] MEDS: Docusate Sodium 100 MG CAP PO (14:37)
[2019-02-24] MEDS: Ketorolac 30 MG/ML VIAL IVP (02:02)
[2019-02-24] MEDS: Normal Saline Flush 10 ML SYR IVP (02:02)
[2019-02-24 06:49] LABS: HCT 29.1 % (36.0-46.0); HGB 9.6 g/dL (12.0-15.5); Mean Corpuscular Hemoglobin 31.2 pg (27.0-33.0); Mean Corpuscular Volume 94.5 fL (80-95); Mean Platelet Volume 10.2 fL (8.0-11.0); Platelet Count 222 x1000/uL (130-400); RBC 3.08 m/cumm (4.00-5.20); RBC Distribution Width 13.2 % (11.7-14.6); White Blood Cell Count 10.25 k/cumm (4.4-10.8)
[2019-02-24 07:19] LABS: ALT 275 U/L (12-78); AST 134 U/L (15-37); Alkaline Phosphatase 93 U/L (46-116); Anion Gap 9.6 mmol/L (3-11); BUN 16 mg/dL (7-18); Bilirubin, Total 0.3 mg/dL (0.2-1.0); CO2 24.4 mmol/L (21.0-32.0); CREATININE 0.68 mg/dL (0.55-1.02); Calcium 8.2 mg/dL (8.5-10.1); Chloride 104 mmol/L (98-107); Glucose 72 mg/dL (70-100); Sodium 138 mmol/L (136-145); Total Protein 6.3 g/dL (6.4-8.2)
--- NOTE | 2019-02-24 07:43 | W.PM.PROGNOT ---
Date of Service Date of service: 02/24/19 Time of Service: 07:43 Assessment and Plan (1) S/P section: Current visit: Yes Status: Acute (2) Severe preeclampsia: Current visit: No Status: Acute (3) HELLP (hemolytic anemia/elev liver enzymes/low platelets in ): Current visit: No Status: Acute Ok to discharge home today. Follow up in the clinic this coming Sunday and will repeat CBC and CMP that day. Today there was a downward trend in her LFTs and blood pressures remained in normal range. Subjective Interval history since last seen: Doing well this morning. No problems overnight. Pain well controlled and has not required narcotics. Ambulatory. Denies headache or visual changes. Objective Objective Clinical Data: Abnormal lab results 02/23/19 02/24/19 02/24/19 Range/Units 07:04 06:40 06:40 RBC 3.08 L (4.00-5.20) m/cumm Hgb 9.6 L (12.0-15.5) g/dL Hct 29.1 L (36.0-46.0) % Sodium 135 L (136-145) mmol/L Calcium 7.2 L 8.2 L (8.5-10.1) mg/dL AST 168 H 134 H (15-37) U/L ALT 313 H 275 H (12-78) U/L Total Protein 6.3 L (6.4-8.2) g/dL Albumin 2.1 L 2.0 L (3.4-5.0) g/dL Vital Signs Pain Level 3 02/24/19 02:02 Laboratory Results WBC 10.25 k/cumm (4.4-10.8) 02/24/19 06:40 RBC 3.08 m/cumm (4.00-5.20) L 02/24/19 06:40 Hgb 9.6 g/dL (12.0-15.5) L 02/24/19 06:40 Hct 29.1 % (36.0-46.0) L 02/24/19 06:40 MCV 94.5 fL (80-95) 02/24/19 06:40 MCH 31.2 pg (27.0-33.0) 02/24/19 06:40 MCHC 33.0 g/dL (32.0-36.0) 02/24/19 06:40 RDW 13.2 % (11.7-14.6) 02/24/19 06:40 Plt Count 222 x1000/uL (130-400) 02/24/19 06:40 MPV 10.2 fL (8.0-11.0) 02/24/19 06:40 Immature Gran % 0.3 02/21/19 02:07 Neutrophils % 82.9 02/21/19 02:07 Lymphocytes % 10.2 02/21/19 02:07 Monocytes % 6.4 02/21/19 02:07 Eosinophils % 0.1 02/21/19 02:07 Basophils % 0.1 02/21/19 02:07 Absolute Neutrophils 14.76 k/cumm (1.2-6.7) H 02/21/19 02:07 Absolute Lymphocytes 1.82 k/cumm (1.2-3.4) 02/21/19 02:07 Absolute Monocytes 1.14 k/cumm (0.11-0.7) H 02/21/19 02:07 Absolute Eosinophils 0.02 k/cumm (0.0-0.7) 02/21/19 02:07 Absolute Basophils 0.02 k/cumm (0.0-0.2) 02/21/19 02:07 Sodium 138 mmol/L (136-145) 02/24/19 06:40 Potassium 4.0 mmol/L (3.5-5.1) 02/24/19 06:40 Chloride 104 mmol/L (98-107) 02/24/19 06:40 Carbon Dioxide 24.4 mmol/L (21.0-32.0) 02/24/19 06:40 Anion Gap 9.6 mmol/L (3-11) 02/24/19 06:40 BUN 16 mg/dL (7-18) D 02/24/19 06:40 Creatinine 0.68 mg/dL (0.55-1.02) 02/24/19 06:40 Estimated GFR/1.73 m2 >= 60.00 (mL/min/1.73m2) 02/24/19 06:40 Glucose 72 mg/dL (70-100) 02/24/19 06:40 Uric Acid Cancelled 02/20/19 Unknown Calcium 8.2 mg/dL (8.5-10.1) L 02/24/19 06:40 Magnesium 6.2 mg/dL (1.8-2.4) H* 02/22/19 07:20 Total Bilirubin 0.3 mg/dL (0.2-1.0) 02/24/19 06:40 Conjugated Bilirubin Cancelled 02/20/19 Unknown AST 134 U/L (15-37) H 02/24/19 06:40 ALT 275 U/L (12-78) H 02/24/19 06:40 Alkaline Phosphatase 93 U/L (46-116) 02/24/19 06:40 Total Protein 6.3 g/dL (6.4-8.2) L 02/24/19 06:40 Albumin 2.0 g/dL (3.4-5.0) L 02/24/19 06:40 Ur Random Creatinine Cancelled 02/20/19 16:30 U Random Total Protein Cancelled 02/20/19 16:30 U [place] Prot/Creat Ratio Cancelled 02/20/19 16:30 Patient ABO/Rh O Positive 02/20/19 16:43 Antibody Screen Negative 02/20/19 16:43 Crossmatch See Detail 02/20/19 16:43
== END 2019-02-24 09:15 | disposition home or self-care (01) | DRG 788 ==
PROVIDERS: Admitting Provider Advanced Practice Midwife; PCP Internal Medicine; Visit Provider Obstetrics & Gynecology
PROC: 10D00Z1 Extraction of Products of Conception, Low, Open Approach (ICD-10-PCS; CPT 59514; principal; 2019-02-21 21:20)
DX: O14.24 HELLP syndrome, complicating childbirth (principal); Z37.0 Single live birth; Z3A.40 40 weeks gestation of pregnancy; O61.0 Failed medical induction of labor; O62.1 Secondary uterine inertia; O48.0 Post-term pregnancy; O99.824 Streptococcus B carrier state complicating childbirth; Z79.82 Long term (current) use of aspirin
CPT/HCPCS: 59514; 36415; 80053; 80076; 82947; 85027; 86850; 86900; 86901; 86920; 99233; NC; 59200; 82565; 83735; 84156; 84550; 85025; J0690; J1885; J2370; J2405; J2540; J2590; J3475; J3490

== ENCOUNTER 2019-02-26 09:30 | Outpatient (CLI) | payer OTHER, SELFPAY | END 2019-02-26 09:50 | PROVIDERS: PCP Internal Medicine; Visit Provider Internal Medicine | DX: Z39.1 Encounter for care and examination of lactating mother (principal) | CPT/HCPCS: E0602 ==

== ENCOUNTER 2019-02-28 08:06 | Outpatient (CLI) | payer OTHER, SELFPAY ==
[2019-02-28 09:19] LABS: Abs Immature Grans 0.04 k/cumm (0.0-0.09); Absolute Basophil Count 0.02 k/cumm (0.0-0.2); Absolute Eosinophil Count 0.11 k/cumm (0.0-0.7); Absolute Lymphocyte Count 1.53 k/cumm (1.2-3.4); Absolute Monocyte Count 0.63 k/cumm (0.11-0.7); Absolute Neutrophil Count 6.54 k/cumm (1.2-6.7); Basophils % 0.2; Eosinophils % 1.2; HCT 33.6 % (36.0-46.0); HGB 11.5 g/dL (12.0-15.5); Immature Grans % 0.5; Lymphocytes % 17.2; Mean Corp. HGB Concentration 34.2 g/dL (32.0-36.0); Mean Corpuscular Volume 93.6 fL (80-95); Mean Platelet Volume 8.9 fL (8.0-11.0); Monocytes % 7.1; Neutrophils % 73.8; Platelet Count 471 x1000/uL (130-400); RBC 3.59 m/cumm (4.00-5.20); RBC Distribution Width 12.8 % (11.7-14.6); White Blood Cell Count 8.87 k/cumm (4.4-10.8)
[2019-02-28 10:17] LABS: ALT 122 U/L (12-78); AST 30 U/L (15-37); Alkaline Phosphatase 91 U/L (46-116); Anion Gap 16.1 mmol/L (3-11); BUN 12 mg/dL (7-18); Bilirubin, Total 0.6 mg/dL (0.2-1.0); CO2 21.9 mmol/L (21.0-32.0); CREATININE 0.59 mg/dL (0.55-1.02); Chloride 102 mmol/L (98-107); Glucose 75 mg/dL (70-100); Potassium 4.2 mmol/L (3.5-5.1); Sodium 140 mmol/L (136-145); Total Protein 7.3 g/dL (6.4-8.2)
== END 2019-02-28 08:26 ==
PROVIDERS: PCP Internal Medicine; Visit Provider Obstetrics & Gynecology
DX: O14.10 Severe pre-eclampsia, unspecified trimester (principal)
CPT/HCPCS: 36415; 80053; 85025

== ENCOUNTER 2020-02-06 01:24 | Outpatient (CLI) | payer OTHER, SELFPAY ==
[2020-02-06 15:21] LABS: Abs Immature Grans 0.02 k/cumm (0.0-0.09); Absolute Basophil Count 0.02 k/cumm (0.0-0.2); Absolute Eosinophil Count 0.27 k/cumm (0.0-0.7); Absolute Lymphocyte Count 2.58 k/cumm (1.2-3.4); Absolute Monocyte Count 0.66 k/cumm (0.11-0.7); Absolute Neutrophil Count 5.57 k/cumm (1.2-6.7); Basophils % 0.2; HCT 38.6 % (36.0-46.0); HGB 13.1 g/dL (12.0-15.5); Immature Grans % 0.2 %; Lymphocytes % 28.3; Mean Corp. HGB Concentration 33.9 g/dL (32.0-36.0); Mean Corpuscular Hemoglobin 31.2 pg (27.0-33.0); Mean Corpuscular Volume 91.9 fL (80-95); Monocytes % 7.2; Neutrophils % 61.1; Platelet Count 350 x1000/uL (130-400); RBC Distribution Width 12.8 % (11.7-14.6); White Blood Cell Count 9.12 k/cumm (4.4-10.8)
[2020-02-06 17:02] LABS: ALT 25 U/L (14-59); AST 18 U/L (15-37); Albumin 3.9 g/dL (3.4-5.0); Alkaline Phosphatase 56 U/L (46-116); Bilirubin, Direct 0.11 mg/dL (0.00-0.20); Bilirubin, Total 0.2 mg/dL (0.2-1.0); FREE T4 1.03 ng/dL (0.76-1.46); TSH 0.01 uIU/mL (0.36-3.74); Total Protein 7.9 g/dL (6.4-8.2)
[2020-02-06 21:41] LABS: T3, Total 130 ng/dL (97-169)
== END 2020-02-06 01:44 ==
PROVIDERS: PCP Family Medicine; Visit Provider Internal Medicine
DX: E05.90 Thyrotoxicosis, unspecified without thyrotoxic crisis or storm (principal)
CPT/HCPCS: 36415; 80076; 84439; 84443; 84480; 85025

== ENCOUNTER 2020-05-04 05:04 | Outpatient (CLI) | payer OTHER, SELFPAY ==
[2020-05-06 04:56] LABS: Vitamin D 25 Total 38.5 ng/ml (30-100)
[2020-05-06 15:23] LABS: Chlamydia Result Negative (Negative); GC Result Negative (Negative)
[2020-05-07 15:07] LABS: Antimullerian Hormone 2.3 ng/mL (0.9-9.5)
== END 2020-05-04 05:24 ==
PROVIDERS: PCP Family Medicine; Visit Provider Obstetrics & Gynecology Reproductive Endocrinology
DX: N97.8 Female infertility of other origin (principal); Z31.89 Encounter for other procreative management
CPT/HCPCS: 36415; 82306; 87491; 87591; 83520; 84439; 84443; 84445; 84480

== ENCOUNTER 2020-07-26 01:39 | Outpatient (CLI) | payer OTHER, SELFPAY ==
[2020-07-26 16:22] LABS: HCG Quant, Pregnancy 226 mIU/mL (1-3)
[2020-07-26 16:26] LABS: FREE T4 1.19 ng/dL (0.76-1.46); TSH 0.02 uIU/mL (0.36-3.74)
[2020-07-26 21:19] LABS: T3, Total 149 ng/dL (97-169)
[2020-07-29 21:46] LABS: Thyroid Stimulating Immunoglob <1.0 TSI index (<=1.3)
== END 2020-07-26 01:59 ==
PROVIDERS: Internal Medicine; Specialist; PCP Family Medicine; Visit Provider Obstetrics & Gynecology Reproductive Endocrinology
DX: E05.90 Thyrotoxicosis, unspecified without thyrotoxic crisis or storm (principal); Z32.00 Encounter for pregnancy test, result unknown
CPT/HCPCS: 36415; 84439; 84443; 84445; 84480; 84702

== ENCOUNTER 2020-07-28 01:14 | Outpatient (CLI) | payer OTHER, SELFPAY ==
[2020-07-28 15:51] LABS: HCG Quant, Pregnancy 499 mIU/mL (1-3)
== END 2020-07-28 01:34 ==
PROVIDERS: Specialist; PCP Family Medicine; Visit Provider Obstetrics & Gynecology Reproductive Endocrinology
DX: Z34.91 Encounter for supervision of normal pregnancy, unspecified, first trimester (principal)
CPT/HCPCS: 36415; 84702

== ENCOUNTER 2020-09-07 01:56 | Outpatient (CLI) | payer OTHER, SELFPAY ==
[2020-09-07 13:15] LABS: Kit/Specimen SENT
[2020-09-07 13:29] LABS: Abs Immature Grans 0.04 10^3/uL (0.0-0.06); Absolute Basophil Count 0.01 10^3/uL (0.0-0.2); Absolute Eosinophil Count 0.05 10^3/uL (0.0-0.7); Absolute Lymphocyte Count 1.71 10^3/uL (1.2-3.4); Absolute Monocyte Count 0.76 10^3/uL (0.1-0.8); Absolute Neutrophil Count 6.53 10^3/uL (1.2-6.7); Basophils % 0.1; Eosinophils % 0.5; HCT 36.7 % (36.0-46.0); Immature Grans % 0.4; Lymphocytes % 18.8; MCH 31.2 pg (27.0-33.0); MCHC 35.4 % (32.0-36.0); MPV 9.2 fL (8.0-11.0); Monocytes % 8.4; Neutrophils % 71.8; Nucleated RBC 0 %; Platelet Count 328 10^3/uL (130-400); RBC 4.17 10^6/uL (3.93-5.22); RDW 11.6 % (11.7-14.6); RDW-SD 37.5 fL
[2020-09-07 13:58] LABS: FREE T4 2.18 ng/dL (0.76-1.46); TSH < 0.01 uIU/mL (0.36-3.74)
[2020-09-09 11:02] LABS: HIV-1/2 Ag & Ab Screen Negative (Negative)
[2020-09-10 17:04] LABS: Thyroid Stimulating Immunoglob <1.0 TSI index (<=1.3)
[2020-09-21 14:35] LABS: Syphilis Total Ab w/Reflex Nonreactive (Nonreactive)
[2020-09-22 15:13] LABS: T3, Total 281 ng/dL (80 - 200)
[2020-09-22 15:35] LABS: Hepatitis C Ab w Rflx HCV PCR Negative (Negative)
[2020-09-22 15:36] LABS: Hepatitis B Surface Ag Negative (Negative)
[2020-09-22 15:37] LABS: Rubella IgG Ab (UVM) Positive
[2020-09-22 15:38] LABS: Varicella IgG Antibody Negative
== END 2020-09-07 02:16 ==
PROVIDERS: Internal Medicine; PCP Family Medicine; Visit Provider Advanced Practice Midwife
DX: E05.90 Thyrotoxicosis, unspecified without thyrotoxic crisis or storm (principal); Z34.91 Encounter for supervision of normal pregnancy, unspecified, first trimester; Z11.4 Encounter for screening for human immunodeficiency virus [HIV]; Z01.84 Encounter for antibody response examination
CPT/HCPCS: 36415; 86787; 86803; 86850; 86900; 86901; 87340; 87389; 84439; 84443; 84445; 84480; 85025; 86762; 86780

== ENCOUNTER 2020-09-07 13:40 | Outpatient (REF) | payer OTHER, SELFPAY ==
--- NOTE | 2020-09-07 11:45 | PAPFT_PTH ---
PATIENT: Zina Crowe LOC: [facility] U#:[id number] AGE/SX: 40/F ROOM: RE09/07/[address]: Marcella Casanova : 1980 BED: DIS: 09/07/2020 SPEC #: [id number] RECD: 09/07/20 17:52 STATUS: CYNDIE REQ #: [id number] KHRIS: 09/07/20 11:[address]: Marcella Casanova DEPT: [facility] [place] Cytology RECD BY: Nguyen Martinez ENTERED: 09/07/20 17:53 SP TYPE: PAPFT OTHR DR: Abhijit Nayak Tissues: 1 - CX/ENDOCX FOR PAP SMEARS Procedures: PAP THIN PREP/[facility] Screening HPV DNA PROBE Comments: [id number] ([id number] [facility])
== END 2020-09-07 14:00 ==
LOC: LBN 13:40
PROVIDERS: PCP Family Medicine; Visit Provider Advanced Practice Midwife
DX: Z12.4 Encounter for screening for malignant neoplasm of cervix (principal); Z11.51 Encounter for screening for human papillomavirus (HPV)
CPT/HCPCS: 88142; 87624

== ENCOUNTER 2020-09-07 14:40 | Outpatient (REF) | payer OTHER, SELFPAY ==
[2020-09-07 15:59] LABS: *AMPHETAMINES SCREEN URINE Negative (Negative); *BARBITURATES SCREEN URINE Negative (Negative); *BENZODIAZEPINES SCREEN URINE Negative (Negative); Cannabinoids THC Negative (Negative); Cocaine Screen,Urine Negative (Negative); METHADONE URINE SCREEN Negative (Negative); OPIATES URINE SCREEN Negative (Negative)
[2020-09-07 16:03] LABS: Tricyclic Antidepressants Negative (Negative)
[2020-09-09 18:32] LABS: Chlamydia amplified RNA Negative (Negative); N gonorrhoeae amplified RNA Negative (Negative); Source VAGINAL
[2020-09-11 11:24] LABS: Buprenorphine Negative; Norbuprenorphine Negative
== END 2020-09-07 15:00 ==
LOC: NCHCN 14:40
PROVIDERS: PCP Family Medicine; Visit Provider Advanced Practice Midwife
DX: Z34.91 Encounter for supervision of normal pregnancy, unspecified, first trimester (principal)
CPT/HCPCS: 80307; 87491; 87591; 87086

== ENCOUNTER 2020-09-29 03:14 | Outpatient (CLI) | payer OTHER, SELFPAY ==
[2020-09-29 11:19] LABS: FREE T4 1.72 ng/dL (0.76-1.46)
[2020-09-29 11:23] LABS: TSH < 0.01 uIU/mL (0.36-3.74)
[2020-09-29 11:40] LABS: T4 16.4 ug/mL (4.7-13.3)
[2020-09-29 18:23] LABS: T3, Total 322 ng/dL (97-169)
== END 2020-09-29 03:34 ==
PROVIDERS: PCP Family Medicine; Visit Provider Internal Medicine
DX: E06.9 Thyroiditis, unspecified (principal)
CPT/HCPCS: 36415; 84436; 84439; 84443; 84480

== ENCOUNTER 2020-10-12 01:59 | Outpatient (CLI) | payer OTHER, SELFPAY ==
[2020-10-13 13:33] LABS: FREE T4 1.72 ng/dL (0.76-1.46)
[2020-10-13 13:36] LABS: TSH < 0.01 uIU/mL (0.36-3.74)
[2020-10-13 16:40] LABS: T3, Total 371 ng/dL (97-169)
== END 2020-10-12 02:19 ==
PROVIDERS: PCP Family Medicine; Visit Provider Internal Medicine
DX: E05.90 Thyrotoxicosis, unspecified without thyrotoxic crisis or storm (principal)
CPT/HCPCS: 36415; 84439; 84443; 84480; 84702

== ENCOUNTER 2020-10-27 04:23 | Outpatient (CLI) | payer OTHER, SELFPAY ==
[2020-10-27 18:49] LABS: FREE T4 1.69 ng/dL (0.76-1.46)
[2020-10-27 18:59] LABS: TSH < 0.01 uIU/mL (0.36-3.74)
[2020-10-27 19:08] LABS: T4 19.8 ug/mL (4.7-13.3)
[2020-10-28 16:24] LABS: T3,Free 6.9 pg/mL (2.8-5.3)
[2020-10-28 16:45] LABS: T3, Total 367 ng/dL (97-169)
== END 2020-10-27 04:43 ==
PROVIDERS: PCP Family Medicine; Visit Provider Internal Medicine
DX: E05.90 Thyrotoxicosis, unspecified without thyrotoxic crisis or storm (principal)
CPT/HCPCS: 36415; 84436; 84439; 84443; 84480; 84481

== ENCOUNTER 2020-11-23 03:15 | Outpatient (CLI) | payer OTHER, SELFPAY ==
[2020-11-23 09:33] LABS: TSH < 0.01 uIU/mL (0.36-3.74)
[2020-11-23 09:43] LABS: T4 16.2 ug/mL (4.7-13.3)
[2020-11-23 17:11] LABS: T3,Free 6.7 pg/mL (2.8-5.3)
[2020-11-23 17:28] LABS: T3, Total 327 ng/dL (97-169)
== END 2020-11-23 03:16 | disposition home or self-care (01) ==
LOC: LBO 03:15
PROVIDERS: PCP Family Medicine; Visit Provider Internal Medicine
DX: E05.90 Thyrotoxicosis, unspecified without thyrotoxic crisis or storm (principal)
CPT/HCPCS: 36415; 84436; 84439; 84443; 84480; 84481

== ENCOUNTER 2020-12-27 04:26 | Outpatient (CLI) | payer OTHER, SELFPAY ==
[2020-12-27 14:34] LABS: FREE T4 1.39 ng/dL (0.76-1.46)
[2020-12-27 14:35] LABS: TSH < 0.01 uIU/mL (0.36-3.74)
[2020-12-27 21:53] LABS: T3,Free 5.5 pg/mL (2.8-5.3)
[2020-12-27 22:06] LABS: T3, Total 322 ng/dL (97-169)
== END 2020-12-27 04:27 | disposition home or self-care (01) ==
LOC: LBO 04:26
PROVIDERS: PCP Family Medicine; Visit Provider Internal Medicine
DX: E05.90 Thyrotoxicosis, unspecified without thyrotoxic crisis or storm (principal)
CPT/HCPCS: 36415; 84439; 84443; 84480; 84481

== ENCOUNTER 2021-01-28 02:31 | Outpatient (CLI) | payer OTHER, SELFPAY ==
[2021-01-28 09:03] LABS: Abs Immature Grans 0.09 10^3/uL (0.0-0.06); Absolute Basophil Count 0.03 10^3/uL (0.0-0.2); Absolute Lymphocyte Count 1.89 10^3/uL (1.2-3.4); Absolute Neutrophil Count 10.58 10^3/uL (1.2-6.7); Basophils % 0.2; Eosinophils % 1.5; HCT 35.8 % (36.0-46.0); HGB 12.3 g/dL (11.2-15.7); Immature Grans % 0.7; Lymphocytes % 13.8; MCH 30.8 pg (27.0-33.0); MCHC 34.4 % (32.0-36.0); MCV 89.5 fL (80-95); MPV 9.2 fL (8.0-11.0); Monocytes % 6.6; Neutrophils % 77.2; Nucleated RBC 0 %; Platelet Count 323 10^3/uL (130-400); RDW 12.5 % (11.7-14.6); RDW-SD 40.8 fL
[2021-01-28 09:07] LABS: Absolute Eosinophil Count 0.21 10^3/uL (0.0-0.7)
[2021-01-28 10:23] LABS: FREE T4 1.54 ng/dL (0.76-1.46)
[2021-01-28 10:24] LABS: TSH < 0.01 uIU/mL (0.36-3.74)
[2021-01-28 17:31] LABS: T3,Free 6.3 pg/mL (2.8-5.3)
== END 2021-01-28 02:32 | disposition home or self-care (01) ==
LOC: LBO 02:32
PROVIDERS: Obstetrics & Gynecology; PCP Family Medicine; Visit Provider Internal Medicine
DX: O99.283 Endocrine, nutritional and metabolic diseases complicating pregnancy, third trimester (principal)
CPT/HCPCS: 36415; 84439; 84443; 84481; 85025

== ENCOUNTER 2021-02-09 01:45 | Outpatient (CLI) | payer OTHER, SELFPAY ==
--- NOTE | 2021-02-09 08:00 | DI.US_ITS ---
EXAM: US OB GUSTABO WEIGHT CLINICAL HISTORY: Growth and GUSTABO,UTERINE FIBROID,D25.9,E05.90. TECHNIQUE: Transabdominal obstetrical ultrasound was performed. COMPARISON: No previous exams were available for comparison FINDINGS: There is a single viable intrauterine gestation with cardiac activity identified-143 bpm The fetus is presently in cephalic position . Amniotic fluid: There is a normal amount of amniotic fluid with an GUSTABO of 13.4cm. Placental location: The placenta is posterior grade 1,with no evidence of placenta previa. Dating parameters place this at approximately 33 weeks and 5 days gestational age, implying LEWIS of March 25, 2021. BPD measures 34 weeks and 1 day HC measures 33 weeks and 4 days AC measures 32 weeks and 5 days FL measures 34 weeks and 3 day Estimated weight is 2196 gm-4 pounds 13 ounces Fetus is at the 68th percentile on the Hadlock scale. IMPRESSION:: Viable 3rd trimester gestation, as described above. DATA REPOSITORY:
== END 2021-02-09 02:05 ==
PROVIDERS: PCP Family Medicine; Visit Provider Obstetrics & Gynecology
DX: O99.283 Endocrine, nutritional and metabolic diseases complicating pregnancy, third trimester (principal); E05.90 Thyrotoxicosis, unspecified without thyrotoxic crisis or storm; Z3A.34 34 weeks gestation of pregnancy
CPT/HCPCS: 76816

== ENCOUNTER 2021-02-28 03:25 | Outpatient (CLI) | payer OTHER, SELFPAY ==
[2021-02-28 13:43] LABS: FREE T4 1.56 ng/dL (0.76-1.46)
[2021-02-28 13:53] LABS: TSH < 0.01 uIU/mL (0.36-3.74)
[2021-02-28 21:31] LABS: T3,Free 6.6 pg/mL (2.8-5.3)
== END 2021-02-28 03:26 | disposition home or self-care (01) ==
PROVIDERS: PCP Family Medicine; Visit Provider Internal Medicine
DX: E05.90 Thyrotoxicosis, unspecified without thyrotoxic crisis or storm (principal)
CPT/HCPCS: 36415; 86900; 86901; 84439; 84443; 84481; 85025

== ENCOUNTER 2021-03-08 14:41 | Outpatient (CLI) | payer OTHER, SELFPAY ==
[2021-03-08 17:02] VITALS: BP 133/80; PULSE 96; RESP 16; TEMP 36.7
[2021-03-08 17:10] VITALS: BP 133/80; PULSE 96; TEMP 36.7
[2021-03-09 15:55] VITALS: BP 133/80; PULSE 96; TEMP 36.7
--- NOTE | 2021-03-09 15:55 | W.OBNST ---
Date of service: 03/09/21 Time of Service: 15:55 NST Evaluation Reason for NST Reasons for Nonstress Test: ADVANCED MATERNAL AGE and OTHER, SEE COMMENT Reason for NST Other: history of pre-eclampsia Gestational Age Gestational Age in Weeks and Days: 36 Weeks and 3Days Test and Monitor Explained Test/Monitor Explained: Test Explained, Monitor Explained and Patient Verbalized Understanding Vital Signs Blood Pressure: 133/80 Pulse: 96 Temperature: 98.1 F NST Information Date on Monitor: 03/08/21 Time on Monitor: 17:00 Date off Monitor: 03/08/21 Time off Monitor: 17:30 Total Time on Monitor: 30 NST Interventions: PO Hydration and Notify Provider NST Evaluation Patient States Movement: Present and Increased FHR Baseline: 130 Variability: Moderate 6-25 bpm Accelerations: 15x15 and Prolonged Decelerations: Variable NST Results: Reactive Note NST Note NST Reviewed and Verified by: Polly Cline
== END 2021-03-08 17:35 | disposition home or self-care (01) ==
LOC: BCD 14:47 → OBS 17:15
PROVIDERS: PCP Family Medicine; Visit Provider Obstetrics & Gynecology Gynecology
DX: O09.523 Supervision of elderly multigravida, third trimester (principal); Z87.59 Personal history of other complications of pregnancy, childbirth and the puerperium; Z3A.36 36 weeks gestation of pregnancy
CPT/HCPCS: 59025

== ENCOUNTER 2021-03-11 12:40 | Outpatient (CLI) | payer OTHER, SELFPAY ==
[2021-03-11 16:45] VITALS: BP 130/82; PULSE 103; TEMP 36.9
[2021-03-11 17:15] VITALS: BP 130/80; PULSE 104; RESP 16
--- NOTE | 2021-03-25 10:48 | W.OBNST ---
Date of service: 03/25/21 Time of Service: 10:48 NST Evaluation Reason for NST Reasons for Nonstress Test: ADVANCED MATERNAL AGE Gestational Age Gestational Age in Weeks and Days: 38 Weeks and 6Days Test and Monitor Explained Test/Monitor Explained: Test Explained, Monitor Explained and Patient Verbalized Understanding Vital Signs Blood Pressure: 130/82 Pulse: 103 Temperature: 98.4 F NST Information Date on Monitor: 03/11/21 Time on Monitor: 16:35 Date off Monitor: 03/11/21 Time off Monitor: 17:15 Total Time on Monitor: 40 NST Interventions: PO Hydration Contraction Frequency: none NST Evaluation Patient States Movement: Present FHR Baseline: 135 Variability: Moderate 6-25 bpm Accelerations: 10x10 Decelerations: None NST Results: Reactive Note NST Note Note: BP stable. Continue surveillance NST Reviewed and Verified by: Polly Cline
[2021-03-25 10:50] VITALS: BP 130/82; PULSE 103; TEMP 36.9
== END 2021-03-11 17:15 | disposition home or self-care (01) ==
LOC: BCD 13:58 → OBS 16:40
PROVIDERS: PCP Family Medicine; Visit Provider Obstetrics & Gynecology
DX: O09.523 Supervision of elderly multigravida, third trimester (principal); Z3A.36 36 weeks gestation of pregnancy
CPT/HCPCS: 59025

== ENCOUNTER 2021-03-14 00:48 | Outpatient (CLI) | payer OTHER, SELFPAY ==
--- NOTE | 2021-03-14 08:15 | DI.US_ITS ---
Exam(s) US OB GUSTABO WEIGHT EXAM: US OB GUSTABO WEIGHT CLINICAL HISTORY: Growth and GUSTABO,HYPERTHYROIDISM,E05.90,Z87.59,o99.280. TECHNIQUE: Transabdominal obstetrical ultrasound was performed. COMPARISON: US US OB GUSTABO WEIGHT from 02/09/2021 FINDINGS: There is a single viable intrauterine gestation with cardiac activity identified-121 bpm The fetus is presently in cephalic position . Amniotic fluid: There is a normal amount of amniotic fluid with an GUSTABO of 15.1cm. Placental location: The placenta is anterior-fundal, grade 2,with no evidence of placenta previa. Dating parameters place this at approximately 37 weeks and 6 days gestational age, implying LEWIS of March 29, 2021. BPD measures 37 weeks and 4 days HC measures 38 weeks and 2 days AC measures 37 weeks and 5 days FL measures 38 weeks and 0 days Estimated weight is 3332 gm-7 pound 6 ounces Fetus is at the 73rd percentile on the Hadlock scale. IMPRESSION:: Viable 3rd trimester gestation, as described above. Incidentally noted is finding anteriorly in the uterus which may be a fibroid or contraction. Measur es approximately 7.2 x 1.8 cm. DATA REPOSITORY:
== END 2021-03-14 01:08 ==
PROVIDERS: PCP Family Medicine; Visit Provider Obstetrics & Gynecology
DX: O99.283 Endocrine, nutritional and metabolic diseases complicating pregnancy, third trimester (principal); E05.90 Thyrotoxicosis, unspecified without thyrotoxic crisis or storm; Z3A.37 37 weeks gestation of pregnancy
CPT/HCPCS: 76816

== ENCOUNTER 2021-03-14 09:53 | Outpatient (CLI) | payer OTHER, SELFPAY ==
[2021-03-14 12:44] VITALS: BP 134/88; PULSE 96
[2021-03-14 13:01] VITALS: BP 134/88; PULSE 96; TEMP 36.7
--- NOTE | 2021-03-14 13:37 | W.OBNST ---
Date of service: 03/14/21 Time of Service: 13:39 NST Evaluation Reason for NST Reasons for Nonstress Test: GESTATIONAL HYPERTENSION and ADVANCED MATERNAL AGE Gestational Age Gestational Age in Weeks and Days: 37 Weeks and 2Days Test and Monitor Explained Test/Monitor Explained: Test Explained, Monitor Explained and Patient Verbalized Understanding Vital Signs Blood Pressure: 134/88 Pulse: 96 Temperature: 98.1 F Urine Results Urine Protein: Negative Urine Ketones: Negative Urine Glucose: Negative Urine Blood: Negative NST Information Date on Monitor: 03/14/21 Time on Monitor: 12:32 Date off Monitor: 03/14/21 Time off Monitor: 12:56 Total Time on Monitor: 24 NST Interventions: PO Hydration Contraction Frequency: none NST Evaluation Patient States Movement: Present FHR Baseline: 130 Variability: Moderate 6-25 bpm Accelerations: 15x15 and Prolonged Decelerations: None NST Results: Reactive Note NST Note Note: Blood pressure 134/88 [facility]. Patient has no other symptoms of preeclampsia. I recommended routine preeclampsia labs 03/17/2021. She is agreeable to the plan. NST Reviewed and Verified by: Polly Cline
[2021-03-14 13:39] VITALS: BP 134/88; PULSE 96; TEMP 36.7
== END 2021-03-14 13:00 | disposition home or self-care (01) ==
LOC: BCD 09:54 → OBS 12:33
PROVIDERS: PCP Family Medicine; Visit Provider Obstetrics & Gynecology Gynecology
DX: O13.3 Gestational [pregnancy-induced] hypertension without significant proteinuria, third trimester (principal); O09.523 Supervision of elderly multigravida, third trimester; Z3A.37 37 weeks gestation of pregnancy
CPT/HCPCS: 59025

== ENCOUNTER 2021-03-14 13:09 | Outpatient (CLI) | payer OTHER, SELFPAY | END 2021-03-14 13:10 | disposition home or self-care (01) | PROVIDERS: PCP Family Medicine; Visit Provider Obstetrics & Gynecology | DX: Z39.1 Encounter for care and examination of lactating mother (principal) | CPT/HCPCS: E0602 ==

== ENCOUNTER 2021-03-14 17:15 | Outpatient (REF) | payer OTHER, SELFPAY | END 2021-03-14 17:16 | disposition home or self-care (01) | LOC: LBN 17:15 | PROVIDERS: PCP Family Medicine; Visit Provider Obstetrics & Gynecology Gynecology | DX: Z34.93 Encounter for supervision of normal pregnancy, unspecified, third trimester (principal); Z36.85 Encounter for antenatal screening for Streptococcus B | CPT/HCPCS: 87081 ==

== ENCOUNTER 2021-03-18 07:10 | Outpatient (CLI) | payer OTHER, SELFPAY ==
[2021-03-18 16:28] VITALS: BP 142/90; PULSE 98; TEMP 36.8
[2021-03-18 16:39] LABS: Abs Immature Grans 0.06 10^3/uL (0.0-0.06); Absolute Eosinophil Count 0.08 10^3/uL (0.0-0.7); Absolute Lymphocyte Count 2.12 10^3/uL (1.2-3.4); Absolute Monocyte Count 1.24 10^3/uL (0.1-0.8); Absolute Neutrophil Count 9.02 10^3/uL (1.2-6.7); Basophils % 0.2; Eosinophils % 0.6; HCT 35.2 % (36.0-46.0); HGB 12.1 g/dL (11.2-15.7); Immature Grans % 0.5; Lymphocytes % 16.9; MCH 30.6 pg (27.0-33.0); MCHC 34.4 % (32.0-36.0); MCV 89.1 fL (80-95); MPV 9.7 fL (8.0-11.0); Monocytes % 9.9; Neutrophils % 71.9; Nucleated RBC 0 %; Platelet Count 300 10^3/uL (130-400); RBC 3.95 10^6/uL (3.93-5.22); RDW 12.5 % (11.7-14.6); RDW-SD 41.1 fL; WBC 12.54 10^3/uL (4.4-10.8)
[2021-03-18 16:41] LABS: Absolute Basophil Count 0.03 10^3/uL (0.0-0.2)
[2021-03-18 16:50] VITALS: BP 142/90; PULSE 98
[2021-03-18 16:51] LABS: ALT 20 U/L (14-59); AST 19 U/L (15-37); Albumin 2.8 g/dL (3.4-5.0); Alkaline Phosphatase 103 U/L (46-116); BUN 9 mg/dL (7-18); Bilirubin, Total 0.3 mg/dL (0.2-1.0); CREATININE 0.5 mg/dL (0.55-1.02); Calcium 9.1 mg/dL (8.5-10.1); Chloride 104 mmol/L (98-107); Glucose 83 mg/dL (74-106); Potassium 3.9 mmol/L (3.5-5.1); Sodium 138 mmol/L (136-145); Total Protein 7.4 g/dL (6.4-8.2)
[2021-03-18 17:02] LABS: PROTEIN 20.4 mg/dL
[2021-03-18 17:07] VITALS: BP 136/80; PULSE 82
[2021-03-18 17:07] LABS: COMMENT (LAB VIEW ONLY) 116.78 mg/dL; Prot/Crea Ur Ratio 0.17
--- NOTE | 2021-03-18 17:14 | W.OBNST ---
Date of service: 03/18/21 Time of Service: 17:14 NST Evaluation Reason for NST Reasons for Nonstress Test: GESTATIONAL HYPERTENSION and ADVANCED MATERNAL AGE Gestational Age Gestational Age in Weeks and Days: 37 Weeks and 6Days Test and Monitor Explained Test/Monitor Explained: Test Explained, Monitor Explained and Patient Verbalized Understanding Vital Signs Blood Pressure: 142/90 Pulse: 98 Temperature: 98.2 F NST Information Date on Monitor: 03/18/21 Time on Monitor: 16:28 Date off Monitor: 03/18/21 Time off Monitor: 17:05 Total Time on Monitor: 37 NST Interventions: PO Hydration NST Evaluation Patient States Movement: Present FHR Baseline: 125 Variability: Moderate 6-25 bpm Accelerations: 15x15 Decelerations: None NST Results: Reactive Note NST Note Note: Patient seen while on the center for nonstress testing. Blood pressure remained stable. Category 1 nonstress test. No contractions apparent. No signs or symptoms of preeclampsia. Labs reviewed and are normal. We will follow-up on Sunday for repeat nonstress test and laboratory studies. Patient understands well signs and symptoms of preeclampsia and will call if clinically changed. NST Reviewed and Verified by: Julia Phillips
[2021-03-18 17:15] VITALS: BP 142/90; PULSE 98; TEMP 36.8
== END 2021-03-18 17:10 | disposition home or self-care (01) ==
LOC: BCD 07:11 → OBS 16:22
PROVIDERS: Obstetrics & Gynecology; PCP Family Medicine; Visit Provider Obstetrics & Gynecology Gynecology
DX: O13.3 Gestational [pregnancy-induced] hypertension without significant proteinuria, third trimester (principal); O09.523 Supervision of elderly multigravida, third trimester; Z3A.37 37 weeks gestation of pregnancy
CPT/HCPCS: 59025; 80053; 82565; 84156; 85025

== ENCOUNTER 2021-03-18 17:21 | Outpatient (CLI) | payer OTHER, SELFPAY | END 2021-03-18 17:22 | disposition home or self-care (01) | LOC: BCD 17:26 | PROVIDERS: PCP Family Medicine; Visit Provider Obstetrics & Gynecology | DX: Z53.9 Procedure and treatment not carried out, unspecified reason (principal) ==

== ENCOUNTER 2021-03-21 10:03 | Outpatient (CLI) | payer OTHER, SELFPAY ==
[2021-03-21 10:18] VITALS: BP 148/88; PULSE 100; TEMP 36.7
[2021-03-21 10:37] VITALS: BP 148/88; PULSE 100
[2021-03-21 10:57] LABS: Abs Immature Grans 0.08 10^3/uL (0.0-0.06); Absolute Basophil Count 0.01 10^3/uL (0.0-0.2); Absolute Eosinophil Count 0.08 10^3/uL (0.0-0.7); Absolute Lymphocyte Count 1.48 10^3/uL (1.2-3.4); Absolute Monocyte Count 0.76 10^3/uL (0.1-0.8); Absolute Neutrophil Count 8.37 10^3/uL (1.2-6.7); Basophils % 0.1; Eosinophils % 0.7; HCT 34.1 % (36.0-46.0); HGB 11.8 g/dL (11.2-15.7); Immature Grans % 0.7; Lymphocytes % 13.7; MCH 30.6 pg (27.0-33.0); MCHC 34.6 % (32.0-36.0); MCV 88.6 fL (80-95); MPV 9.8 fL (8.0-11.0); Monocytes % 7.1; Neutrophils % 77.7; Nucleated RBC 0 %; Platelet Count 289 10^3/uL (130-400); RBC 3.85 10^6/uL (3.93-5.22); RDW 12.6 % (11.7-14.6); RDW-SD 40.9 fL; WBC 10.78 10^3/uL (4.4-10.8)
[2021-03-21 11:12] LABS: COMMENT (LAB VIEW ONLY) 32.03 mg/dL; PROTEIN 7.8 mg/dL; Prot/Crea Ur Ratio 0.24
[2021-03-21 11:16] LABS: ALT 17 U/L (14-59); AST 14 U/L (15-37); Albumin 2.6 g/dL (3.4-5.0); Alkaline Phosphatase 97 U/L (46-116); Anion Gap 10.2 mmol/L (3-11); BUN 6 mg/dL (7-18); Bilirubin, Total 0.3 mg/dL (0.2-1.0); CO2 23.8 mmol/L (21.0-32.0); CREATININE 0.5 mg/dL (0.55-1.02); Calcium 8.9 mg/dL (8.5-10.1); Chloride 103 mmol/L (98-107); Glucose 128 mg/dL (74-106); Potassium 3.9 mmol/L (3.5-5.1); Sodium 137 mmol/L (136-145)
[2021-03-21 11:34] VITALS: BP 139/80; PULSE 93
--- NOTE | 2021-03-22 11:00 | W.OBNST ---
Date of service: 03/22/21 Time of Service: 11:00 NST Evaluation Reason for NST Reasons for Nonstress Test: GESTATIONAL HYPERTENSION Gestational Age Gestational Age in Weeks and Days: 38 Weeks and 2Days Test and Monitor Explained Test/Monitor Explained: Test Explained, Monitor Explained and Patient Verbalized Understanding Vital Signs Blood Pressure: 148/88 Pulse: 100 Temperature: 98.1 F NST Information Date on Monitor: 03/21/21 Time on Monitor: : Date off Monitor: 03/21/21 Time off Monitor: 10:51 Total Time on Monitor: 30 NST Interventions: PO Hydration NST Evaluation Patient States Movement: Present FHR Baseline: 125 Variability: Moderate 6-25 bpm Accelerations: 15x15 Decelerations: None NST Results: Reactive Note NST Note Note: NST reviewed. Category 1 strip. NST Reviewed and Verified by: Julia Phillips
[2021-03-22 11:01] VITALS: BP 148/88; PULSE 100; TEMP 36.7
[2021-03-23 13:33] VITALS: BP 152/89; PULSE 110
== END 2021-03-21 11:40 | disposition home or self-care (01) ==
LOC: BCD 10:05 → OBS 10:16
PROVIDERS: PCP Family Medicine; Visit Provider Obstetrics & Gynecology
DX: O13.3 Gestational [pregnancy-induced] hypertension without significant proteinuria, third trimester (principal); Z3A.38 38 weeks gestation of pregnancy
CPT/HCPCS: 59025; 80053; 82565; 84156; 85025

== ENCOUNTER 2021-03-23 10:58 | Outpatient (CLI) | payer OTHER, SELFPAY ==
[2021-03-23 13:03] VITALS: BP 152/89; PULSE 110; TEMP 36.8
[2021-03-23 14:04] LABS: HCT 34.7 % (36.0-46.0); MCH 30.8 pg (27.0-33.0); MCHC 34.6 % (32.0-36.0); MCV 89.2 fL (80-95); MPV 9.8 fL (8.0-11.0); Platelet Count 278 10^3/uL (130-400); RBC 3.89 10^6/uL (3.93-5.22); RDW 12.5 % (11.7-14.6); RDW-SD 41.1 fL; WBC 14.05 10^3/uL (4.4-10.8)
[2021-03-23 14:16] LABS: PROTEIN < 6.0 mg/dL
[2021-03-23 14:17] LABS: ALT 18 U/L (14-59); AST 17 U/L (15-37); Albumin 2.6 g/dL (3.4-5.0); Alkaline Phosphatase 108 U/L (46-116); Anion Gap 11.7 mmol/L (3-11); BUN 6 mg/dL (7-18); Bilirubin, Total 0.3 mg/dL (0.2-1.0); CO2 23.3 mmol/L (21.0-32.0); CREATININE 0.7 mg/dL (0.55-1.02); Calcium 8.9 mg/dL (8.5-10.1); Chloride 102 mmol/L (98-107); Glucose 107 mg/dL (74-106); Potassium 4.1 mmol/L (3.5-5.1); Sodium 137 mmol/L (136-145); Total Protein 7.1 g/dL (6.4-8.2)
[2021-03-23 14:19] LABS: COMMENT (LAB VIEW ONLY) < 13.00 mg/dL
[2021-03-23 14:27] VITALS: BP 164/85; PULSE 109
[2021-03-23 14:35] VITALS: BP 144/86
--- NOTE | 2021-03-23 15:28 | W.OBNST ---
Date of service: 03/23/21 Time of Service: 15:28 NST Evaluation Reason for NST Reasons for Nonstress Test: ADVANCED MATERNAL AGE Reason for NST Other: Gestational hypertension Gestational Age Gestational Age in Weeks and Days: 38 Weeks and 4Days Test and Monitor Explained Test/Monitor Explained: Test Explained, Monitor Explained and Patient Verbalized Understanding Vital Signs Blood Pressure: 152/89 Pulse: 110 Temperature: 98.2 F Urine Results Urine Protein: Positive Urine Ketones: Positive Urine Glucose: Negative Urine Blood: Positive NST Information Date on Monitor: 03/23/21 Time on Monitor: 13:05 Date off Monitor: 03/23/21 Time off Monitor: 13:37 Total Time on Monitor: 32 NST Interventions: PO Hydration and Other NST Evaluation Patient States Movement: Present FHR Baseline: 125 Variability: Moderate 6-25 bpm Accelerations: 15x15 Decelerations: None NST Results: Reactive Note NST Note Note: Reactive NST. Category one strip. Labs performed and normal. Blood pressure, borderline elevation. We'll follow-up on Sunday for blood pressure check, nonstress test, labs if indicated. Anticipate scheduled repeat section as scheduled. NST Reviewed and Verified by: Julia Phillips
[2021-03-23 15:29] VITALS: BP 152/89; PULSE 110; TEMP 36.8
== END 2021-03-23 14:45 | disposition home or self-care (01) ==
LOC: BCD 10:59 → OBS 13:00
PROVIDERS: PCP Family Medicine; Visit Provider Obstetrics & Gynecology
DX: O09.523 Supervision of elderly multigravida, third trimester (principal); O13.3 Gestational [pregnancy-induced] hypertension without significant proteinuria, third trimester; Z3A.38 38 weeks gestation of pregnancy
CPT/HCPCS: 59025; 36415; 80053; 85027; 82565; 84156

== ENCOUNTER 2021-03-25 07:18 | Outpatient (CLI) | payer OTHER, SELFPAY ==
[2021-03-25 08:09] VITALS: BP 133/84; PULSE 105; TEMP 36.9
[2021-03-25 08:30] VITALS: BP 133/84; PULSE 105
--- NOTE | 2021-03-25 10:51 | W.OBNST ---
Date of service: 03/25/21 Time of Service: 10:51 NST Evaluation Reason for NST Reasons for Nonstress Test: GESTATIONAL HYPERTENSION and ADVANCED MATERNAL AGE Gestational Age Gestational Age in Weeks and Days: 38 Weeks and 6Days Test and Monitor Explained Test/Monitor Explained: Test Explained, Monitor Explained and Patient Verbalized Understanding Vital Signs Blood Pressure: 133/84 Pulse: 105 Temperature: 98.4 F Urine Results Urine Protein: Positive Urine Ketones: Negative Urine Glucose: Negative Urine Blood: Negative NST Information Date on Monitor: 03/25/21 Time on Monitor: 08:12 Date off Monitor: 03/25/21 Time off Monitor: 08:37 Total Time on Monitor: 25 NST Interventions: PO Hydration NST Evaluation Patient States Movement: Present FHR Baseline: 130 Variability: Moderate 6-25 bpm Accelerations: 15x15 Decelerations: None NST Results: Reactive Note NST Note Note: Blood pressure stable. Patient will return on Sunday for repeat NST plan repeat 03/30/2021 NST Reviewed and Verified by: Polly Cline
[2021-03-25 10:52] VITALS: BP 133/84; PULSE 105; TEMP 36.9
== END 2021-03-25 08:40 | disposition home or self-care (01) ==
LOC: BCD 07:19 → OBS 07:36
PROVIDERS: PCP Family Medicine; Visit Provider Obstetrics & Gynecology Gynecology
DX: O09.523 Supervision of elderly multigravida, third trimester (principal); Z3A.38 38 weeks gestation of pregnancy
CPT/HCPCS: 59025

== ENCOUNTER 2021-03-28 04:46 | Outpatient (CLI) | payer OTHER, SELFPAY ==
[2021-03-28 09:55] LABS: Abs Immature Grans 0.06 10^3/uL (0.0-0.06); Absolute Basophil Count 0.02 10^3/uL (0.0-0.2); Absolute Eosinophil Count 0.07 10^3/uL (0.0-0.7); Absolute Lymphocyte Count 1.88 10^3/uL (1.2-3.4); Absolute Monocyte Count 0.94 10^3/uL (0.1-0.8); Absolute Neutrophil Count 7.38 10^3/uL (1.2-6.7); Basophils % 0.2; Eosinophils % 0.7; HCT 36.5 % (36.0-46.0); HGB 12.6 g/dL (11.2-15.7); Immature Grans % 0.6; Lymphocytes % 18.2; MCH 30.4 pg (27.0-33.0); MCHC 34.5 % (32.0-36.0); MPV 10.1 fL (8.0-11.0); Monocytes % 9.1; Neutrophils % 71.2; Nucleated RBC 0 %; Platelet Count 272 10^3/uL (130-400); RBC 4.15 10^6/uL (3.93-5.22); RDW 12.5 % (11.7-14.6); RDW-SD 39.8 fL; WBC 10.35 10^3/uL (4.4-10.8)
[2021-03-28 11:02] LABS: Source Nasal/Nares
[2021-03-28 15:09] LABS: COVID-19 PCR Negative (Negative)
== END 2021-03-28 04:47 | disposition home or self-care (01) ==
LOC: LBO 04:46
PROVIDERS: PCP Family Medicine; Visit Provider Obstetrics & Gynecology Gynecology
DX: O09.523 Supervision of elderly multigravida, third trimester (principal); O34.219 Maternal care for unspecified type scar from previous cesarean delivery; O13.3 Gestational [pregnancy-induced] hypertension without significant proteinuria, third trimester; Z20.822 Contact with and (suspected) exposure to COVID-19; Z01.818 Encounter for other preprocedural examination; Z01.812 Encounter for preprocedural laboratory examination
CPT/HCPCS: 36415; 86850; 86900; 86901; 86920; 87635; 85025

== ENCOUNTER 2021-03-28 07:35 | Outpatient (CLI) | payer OTHER, SELFPAY ==
[2021-03-28 10:05] VITALS: BP 144/87; PULSE 105; TEMP 36.8
[2021-03-28 10:16] VITALS: BP 144/87; PULSE 105
[2021-03-28 11:12] VITALS: BP 144/87; PULSE 105; TEMP 36.8
--- NOTE | 2021-03-28 11:12 | W.OBNST ---
Date of service: 03/28/21 Time of Service: 11:12 NST Evaluation Reason for NST Reasons for Nonstress Test: GESTATIONAL HYPERTENSION and ADVANCED MATERNAL AGE Gestational Age Gestational Age in Weeks and Days: 39 Weeks and 2Days Test and Monitor Explained Test/Monitor Explained: Test Explained, Monitor Explained and Patient Verbalized Understanding Vital Signs Blood Pressure: 144/87 Pulse: 105 Temperature: 98.2 F Urine Results Urine Protein: Positive Urine Ketones: Negative Urine Glucose: Negative Urine Blood: Negative NST Information Date on Monitor: 03/28/21 Time on Monitor: 10:04 Date off Monitor: 03/28/21 Time off Monitor: 10:32 Total Time on Monitor: 28 NST Interventions: PO Hydration Contraction Frequency: irregular NST Evaluation Patient States Movement: Present FHR Baseline: 120 Variability: Moderate 6-25 bpm Accelerations: 15x15 Decelerations: None NST Results: Reactive Note NST Note Note: NST reactive, category 1 strip. Blood pressure stable. History and physical performed today for upcoming repeat section, possible hysterectomy, bilateral salpingectomy. NST Reviewed and Verified by: Julia Phillips
[2021-03-28 12:48] LABS: ALT 26 U/L (14-59); AST 23 U/L (15-37); Albumin 2.8 g/dL (3.4-5.0); Alkaline Phosphatase 115 U/L (46-116); Anion Gap 10.2 mmol/L (3-11); BUN 8 mg/dL (7-18); Bilirubin, Total 0.3 mg/dL (0.2-1.0); CO2 23.8 mmol/L (21.0-32.0); CREATININE 0.5 mg/dL (0.55-1.02); Chloride 103 mmol/L (98-107); Glucose 83 mg/dL (74-106); Potassium 4.3 mmol/L (3.5-5.1); Sodium 137 mmol/L (136-145); Total Protein 6.8 g/dL (6.4-8.2)
[2021-03-28 12:53] LABS: Calcium 9.3 mg/dL (8.5-10.1)
== END 2021-03-28 10:45 | disposition home or self-care (01) ==
LOC: BCD 07:36 → OBS 10:02
PROVIDERS: PCP Family Medicine; Visit Provider Obstetrics & Gynecology
DX: O13.3 Gestational [pregnancy-induced] hypertension without significant proteinuria, third trimester (principal); O09.523 Supervision of elderly multigravida, third trimester; Z3A.39 39 weeks gestation of pregnancy
CPT/HCPCS: 59025; 80053

== ENCOUNTER 2021-03-30 06:00 | Inpatient (IN) | payer OTHER, SELFPAY ==
--- NOTE | 2021-03-28 11:15 | HPE_ITS ---
Date of service: 03/28/21 Time of Service: 11:25 Assessment and Plan Assessment and plan (1) : Status: Resolved Assessment and plan: 2 para 1 at 39 weeks and 2 days. Patient has a known history of hyperthyroidism which has been followed by endocrinology. She also has a history of severe preeclampsia with help syndrome with her previous . She received magnesium sulfate for seizure prophylaxis and had a primary low transverse section without . She opts for a repeat scheduled section. She also has undesired fertility and requests permanent sterilization. The risk benefits and alternatives of section were explained to the patient in full informed consent was obtained. She understands well the risk of infection, bleeding, injury to surrounding organs, risk of thromboembolism, risk of anesthesia. She is consented for repeat section possible hysterectomy, bilateral salpingectomy. She will have preoperative laboratory studies including Covid testing. She will have compression stockings placed for DVT prophylaxis and the appropriate antibiotics preoperative. Her thyroid will be tested after her . (2) Hyperthyroidism affecting : Status: Acute (3) Fibroid, uterine: Status: Acute (4) History of pre-eclampsia: Status: Acute OB-HPI Labor/Delivery History of Present Illness Chief Complaint: Scheduled Section (At 39 weeks) , Inidcation for Scheduled : Previous .. LEWIS Calculator Estimated Delivery Date Method Current Current Estimate 04/02/21 Manual 39w 2d LEWIS History of Present Expected Delivery Route/Plan repeat C/S - MD care FOB/ - Ronnell CARTER Varicella non-immune - offer vaccine Specific Issues/Plan 1. History HELLP/Preeclampsia - ASA recommended daily. 2. Hyperthyroidism - recently diagnosed. Se[place] [facility] [place], thyroid labs every [address] Skinner, Thyroid stimulating immunoglobulin ordered, [facility] [place] and US 2a. T3-218, TSH less than 0.08, T4 - 2.18 2b. T4 1.72, repeat labs per Dr. Skinner 10/12 3. Previous - desires repeat 4. Dumont test desired , declines CF and SMA testing, undecided re: AFP. 4a. Declines AFP. 5. Tandem nursing 6. Varicella non-immune - Discuss with Patient Assessment: History Reviewed & Current Narrative: Patient is a 40-year-old female 2 para 1 who had care at [facility] via the MD service. She is doing well. She is scheduled for repeat section after 39 weeks. Previous was complicated by severe preeclampsia and help syndrome for which she required magnesium sulfate and so quickly had a primary section. She will have a repeat section with bilateral salpingectomy for permanent sterilization as scheduled. Review of Systems Narrative: Patient seen and examined today. She is feeling well. Baby's been moving and active. She has no signs or symptoms of preeclampsia. Constitutional Constitutional: Reports as per HPI Eyes Eyes: Reports system reviewed and no additional complaints, except as documented Cardiovascular Cardiovascular: Reports system reviewed and no additional complaints, except as documented, Denies chest pain and Denies irregular heart rhythm Respiratory Respiratory: Reports system reviewed and no additional complaints, except as documented, Denies chest congestion and Denies cough Gastrointestinal Gastrointestinal: Reports system reviewed and no additional complaints, except as documented, Denies abdominal pain, Denies constipation, Denies diarrhea and Denies nausea Genitourinary Genitourinary: Reports system reviewed and no additional complaints, except as documented and Reports as per HPI Neurologic Neurologic: Reports system reviewed and no additional complaints, except as documented Endocrine Endocrine: Reports system reviewed and no additional complaints, except as documented [facility] Medical History History of pre-eclampsia HELLP syndrome Family History Sister Endometriosis Paternal Grandmother Diabetes type 2, obese Mother Fibroid uterus Social History Smoking/Tobacco Use Status: Never Smoking risk assessment performed?: Yes Alcohol Intake: never Substance use type: does not use Do you think of yourself as: lesbian/wong/homosexual Current gender identity: female Female Reproductive History Menstrual Age of Menarche: 16 control method: none History History 2 Para 1 Hx # Term Pregnancies 1 Multiple births 0 Hx # Pregnancies 0 Ectopic pregnancies 0 AB induced 0 Hx Number of Living Children 1 AB spontaneous 0 Past Pregnancies Del. Date GA/Weeks # Outcome Route Wgt Sex Labor Lgth Anesthes ia Location Prov Complic 02/21/19 No Successful 7 lb 13 oz Male [facility] Delivery Date: 02/21/19 IOL at 41 weeks for post dates and HELLP syndrom with elevated liver enzymes. Baby delivered per Primary Low Transverse Section, without complications. Difficult extraction of and forceps were applied. Marcella Luong Allergies and Home Medications Allergies Allergy/AdvReac Type Severity Reaction Status Date / Time erythromycin base Allergy Severe Verified 02/22/21 13:18 Home Medications Medication Instructions Recorded Confirmed Type lactobacillus combination no.8 3 3,000 mmu cells PO DAILY 07/17/18 11/02/20 History billion cell capsule prenat.vits,muna,eqj-iwsu-ruqva 1 tab PO DAILY 07/17/18 11/02/20 History omega 7-iss-ywd-fish oil 120 1 cap PO DAILY cap 09/07/20 11/02/20 History mg-180 mg-500 mg capsule aspirin 81 mg tablet,delayed 162 mg PO DAILY tab 10/05/20 11/02/20 History release breast pump #1 ea 03/09/21 Rx Exam Detailed Labor and Delivery Exam Bee Score: Cervical Points Exam 0 1 2 3 Dilation Closed 1-2cm 3-4 cm 5-6cm Effacement 0-30% 40-50% 60-70% 80% Consistency Firm Medium Soft Station -3 -2 -1,0 +1,+2 Position Posterior Mid Anterior Fetus A Monitor Accelerations: Present Monitor Decelerations: None Variability: Moderate (6-25 BPM) Presentation: Cephalic Categories: Category I Est. Weight: 8 lb Neck Exam Neck Exam: Normal Detailed Respiratory Exam Respiratory: Present CTA bilaterally; Absent rales, rhonchi, wheezes and crackles Detail Cardiovascular Exam Cardiovascular: Present RRR and S1; Absent murmur, rubs, tachycardia and irregular rhythm Abdominal Exam Abdominal Exam: Normal (Gravid, estimated weight 8 pounds by Jameson's) Detailed Extremities Exam Extremities: Absent cyanosis, clubbing, edema and calf tenderness Skin Exam Skin Exam: Normal Detailed Neurological Exam Neurological: Present alert and oriented X3 Psychiatric Exam Psychiatric Exam: Normal Results Results Group Beta Strep: Negative Blood Type: O+ Rubella Status: Immune Varicella Immunity: Nonimmune Lab Results: TSH is low consistent with her history of hypothyroidism. Her 1 hour glucose tolerance test was normal. Risk Assessment Risk for Shoulder Dystocia Historical/Initial OB: POSITIVE FOR: Pre- BMI>30; NEGATIVE FOR: Pelvic Abnormality, Previous Shoulder Dystocia or Previous Macrosomia Risk for Pre-Eclampsia Date Initiated/Initials: Instructed to start at 12 weeks, [address] Cline Yes, if one or more: POSTIVE FOR: Hx Pre-E/Gest HTN; NEGATIVE FOR: Chronic HTN, Multiple Gestation, Pre-gestational DM, Renal Disease, Systemic Lupus or APA Syndrome Yes, if 2 or more: POSITIVE FOR: BMI>30; NEGATIVE FOR: Nulliparity Risk for Post- Hemorrhage Initial: NEGATIVE FOR: Multiple Gestation, Previous PPH, Known Clotting Deficiency, Grand Multiparity or Anticoagulation Risks Reviewed Risks Reviewed Upon Admission: Yes
[2021-03-30] VITALS (27 sets, daily range): BP systolic 79–134; BP diastolic 40–80; PULSE 63–127; RESP 11–18; TEMP 36.4–37; O2SAT 95–99; BMI 32.5
--- NOTE | 2021-03-30 06:22 | NUR.NOTE ---
Nursing Note: Pt arrived at 0605 for scheduled repeat C/S. present. 18 gauge IV inserted left forearm, flushes well. 1st attempt.
[2021-03-30] MEDS: Lactated Ringers 1,000 ML 200 ML IV (06:44)
--- NOTE | 2021-03-30 06:59 | ANES.PREOP_ITS ---
General Info Date of Service Date Performed: 03/30/21 Height: 5 ft 4.96 in Weight: 88.451 kg Body Mass Index (BMI): 32.5 Surgical Procedure: Operation Date: 03/30/21 07:40 Proposed Procedures Side Surgeonn p Section, MELYL SALPINGECTOMY Julia Phillips DO Meds Allergies and Home Medications Allergies Allergy/AdvReac Type Severity Reaction Status Date / Time erythromycin base Allergy Severe Verified 02/22/21 13:18 Home Medication Medication Instructions Recorded lactobacillus combination no.8 3 3,000 mmu cells PO DAILY 07/17/18 billion cell capsule prenat.vits,muna,dzj-yivd-vbgui 1 tab PO DAILY 07/17/18 omega 8-idh-chl-fish oil 120 1 cap PO DAILY cap 09/07/20 mg-180 mg-500 mg capsule aspirin 81 mg tablet,delayed 162 mg PO DAILY tab 10/05/20 release breast pump #1 ea 03/09/21 Current Visit Medications: Current Medications Generic Name Dose Route Start Last Admin Trade Name Freq PRN Reason Stop Dose Admin Citric Acid/Sodium Citrate 30 ml 03/30/21 07:00 Sodium Citrate 30 Ml Cup PO PREOP MARI Sodium Chloride 500 mls @ 0 mls/hr 03/30/21 06:37 Saline 500ml Bag IV PRN PRN As Directed Ringer's Solution 1,000 mls @ 200 mls/hr 03/30/21 06:45 03/30/21 06:44 IV 200 mls/hr INFUSION MARI Administration IV Miscellaneous Supplies 1 each 03/30/21 06:45 Iv Access IV DIRECTED MARI Sodium Chloride 0 ml 03/30/21 06:37 Normal Saline Flush 10 Ml Syr IVP PRN PRN PFSH Active Problems Active Problems: Problem Status Onset Code Benign heart murmur R01.0 Fibroid, uterine D25.9 Goiter diffuse E04.9 Hyperthyroidism affecting O99.280, E05.90 Z34.90 History of pre-eclampsia Z87.59 S/P section Z98.891 Severe preeclampsia O14.10 HELLP (hemolytic anemia/elev liver enzymes/low platelets in ) O14.20 Elevated liver enzymes R74.8 Z34.90 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 Date GA/Weeks # Outcome Route Wgt Sex Labor Lgth Anesthes ia Location Prov Complic 02/21/19 No Successful 3543.69 g Male [facility] Delivery Date: 02/21/19 IOL at 41 weeks for post dates and HELLP syndrom with elevated liver enzymes. Baby delivered per Primary Low Transverse Section, without complications. Difficult extraction of infant and forceps were applied. Marcella Luong Vital Signs and Lab Results Vital Signs Most Recent Vital Signs in EMR: Most Recent Vital Signs Temp Pulse Resp BP Pulse Ox 36.7 C 99 H 16 125/74 99 03/30/21 06:26 03/30/21 06:26 03/30/21 06:26 03/30/21 06:26 03/30/21 06:26 Lab Results Blood Type / Crossmatch: Patient ABO/Rh O Positive 03/28/21 09:40 03/28/21 Antibody Screen Negative 03/28/21 09:40 03/28/21 Complete Blood Count: White Blood Count 10.35 10^3/uL (4.4-10.8) 03/28/21 09:40 03/28/21 Red Blood Count 4.15 10^6/uL (3.93-5.22) 03/28/21 09:40 03/28/21 Hemoglobin 12.6 g/dL (11.2-15.7) 03/28/21 09:40 03/28/21 Hematocrit 36.5 % (36.0-46.0) 03/28/21 09:40 03/28/21 Platelet Count 272 10^3/uL (130-400) 03/28/21 09:40 03/28/21 Complete Metabolic Panel: Sodium Level 137 mmol/L (136-145) 03/28/21 09:40 03/28/21 Potassium Level 4.3 mmol/L (3.5-5.1) 03/28/21 09:40 03/28/21 Chloride Level 103 mmol/L (98-107) 03/28/21 09:40 03/28/21 Carbon Dioxide Level 23.8 mmol/L (21.0-32.0) 03/28/21 09:40 03/28/21 Blood Urea Nitrogen 8 mg/dL (7-18) 03/28/21 09:40 03/28/21 Creatinine 0.5 mg/dL (0.55-1.02) L 03/28/21 09:40 03/28/21 Calcium Level 9.3 mg/dL (8.5-10.1) 03/28/21 09:40 03/28/21 Albumin 2.8 g/dL (3.4-5.0) L 03/28/21 09:40 03/28/21 Glucose Level 83 mg/dL (74-106) 03/28/21 09:40 03/28/21 Liver Function Panel: Alanine Aminotransferase (ALT/SGPT) 26 U/L (14-59) 03/28/21 09:40 03/28/21 Aspartate Amino Transf (AST/SGOT) 23 U/L (15-37) 03/28/21 09:40 03/28/21 Coagulation Panel: No Data to Display Cardiac Panel: No Data to Display Arterial Blood Gas: No Data to Display Venous Blood Gas: No Data to Display Pancreas Panel: No Data to Display Thyroid Panel: Thyroid Stimulating Hormone (TSH) < 0.01 uIU/mL (0.36-3.74) L 02/28/21 12:05 02/28/21 Infectious Disease: Coronavirus (COVID-19)(PCR) Negative (Negative) 03/28/21 09:51 03/28/21 Coronavirus 2019 Source Nasal/nares 03/28/21 09:51 03/28/21 Blood Cultures: No Data to Display Toxicology Panel: No Data to Display Panel: No Data to Display Anesthesia Assessment and Plan Anesthesia History Personal History: No History of Anesthesia Complications Family History: No Family History of Anesthesia Complications Exercise Tolerance Exercise Tolerance: Metabolic Equivalents>4 Pertinent Negatives Pertinent Negatives: No Major Cardiovascular Symptoms or Complaints and No Major Pulmonary Symptoms or Complaints Cardiac & Pulmonary Exam Cardiac Exam: Heart Murmur Present Pulmonary Exam: Clear Bilateral Breath Sounds Airway Exam Known Difficult Airway: No Mallampati Class: 1 Mouth Opening: Normal (> 3cm) Thyromental Distance: Greater than 3 cm Neck Range of Motion: Full ROM Neck Circumference: Normal Teeth Condition: Normal Dentition ASA Classification ASA Score: ASA 2 Emergency Case?: No NPO Status NPO Status: NPO Clears >2 hours, Solids >8 hours Status Status: Per Patient and Positive HCG Anesthesia Plan Resuscitation Status: Full Code Anesthesia Technique: Spinal Anesthesia Airway Planned: Natural Airway Pain Management: Intrathecal Analgesia Monitors Used: Standard Monitors
[2021-03-30] MEDS: ceFAZolin 2 GM/50 ML BAG IVPB (07:55)
--- NOTE | 2021-03-30 08:28 | FALL_PTH ---
PATIENT: Zina Crowe LOC: OBS U#:[id number] AGE/SX: 40/F ROOM: OBS.303 RE03/30/[address]: Julia Phillips DO : 1980 BED: A DIS: 04/01/2021 SPEC #: [id number] RECD: 03/30/21 12:53 STATUS: CYNDIE REQ #: [id number] KHRIS: 03/30/21 08:[address]: Julia Phillips DEPT: Surgical Specimen RECD BY: Nguyen Martinez ENTERED: 03/30/21 12:55 SP TYPE: Fall OTHR DR: Abhijit Nayak Tissues: E - FALLOPIAN TUBE (STERILIZATION) 1 - FALLOPIAN TUBE (STERILIZATION) Procedures: GROSS AND MICRO LEVEL 2 Comments: [id number]
[2021-03-30] MEDS: Oxytocin/Normal Saline 30 UNIT/500 ML BAG 95 UNITS IV (08:30)
[2021-03-30] MEDS: Bupivacaine 0.25% Pres-Free 10 ML VIAL (08:47)
[2021-03-30] MEDS: Bupivacaine LIPOSOME/PF 133 MG/10 ML VIAL IJ (08:47)
--- NOTE | 2021-03-30 09:15 | PDOC.OPNB_ITS ---
Date of service: 03/30/21 Time of Service: 09:16 Operative Note Operative Note Delivery Method: Scheduled DATE OF PROCEDURE: 03/30/21 PRE-OP DIAGNOSES: Previous section. Term . Undesired fertility POST-OP DIAGNOSES: same PROCEDURE: Repeat low transverse section with bilateral salpingectomy SURGEON: Julia Phillips Assisting Surgeon: Polly Cline Anesthesia: local and spinal Estimated blood loss (mL): 400 Pathology: other (1. Left fallopian tube #2 right fallopian tube) Complications: None Patient was transported to: floor Patient's condition: stable Indications: Previous low transverse section, declines trial of labor. Undesired fertility Findings: Normal-appearing tubes, ovaries, uterus. Delivery of a viable female infant from the vertex position, loose nuchal cord. Procedure Description: Patient was taken the operating suite with an IV running where she placed in the seated position. Spinal anesthesia administered tested and found to be adequate. She was placed in the dorsal supine position. Vaginal prep was performed Hernandes catheter was inserted. She was given a leftward tilt and prepped and draped in the usual sterile fashion. Pfannenstiel skin incision was made through her previous scar and carried down to the underlying fascia. Fascia was then nicked in the midline and extended laterally. The fascia was then split from the rectus muscles rectus muscles identified split in the midline and peritoneum identified tented up and entered sharply. The peritoneal incision was then extended superiorly and inferiorly and the bladder blade was inserted. The vesicouterine peritoneum was identified and bladder flap was created with meticulous sharp dissection. A low transverse uterine incision was made and extended bluntly laterally. She had artificial rupture of membranes at this point for clear fluid. The vertex was identified and gently delivered through the uterine incision. There was evidence of nuchal cord which was loose in the shoulders followed with ease. Three-vessel cord was noted clamped x2 and cut and the was handed off to the waiting gyroscopic engineering technician. At this point cord blood sample was obtained and placenta was manually expressed from the uterus. The uterus was then cleared of all clot and debris. Uterine incision was closed using 0 Monocryl suture in a 2 layer closure first running locked, second imbricated layer. At this point attention was turned to the left fallopian tube which was cautery transected and removed in toto. A similar procedure was carried out on the right fallopian tube. Ovaries were normal. Pedicles are hemostatic. At this point all incisions and pedicles were again reinspected there was one area at the midline of the uterine incision that was nonhemostatic which was oversewn with 2 stitches of 0 Monocryl in a [id number] fashion. Hemostasis was achieved. Uterus was returned to the abdomen. Again all incisions and pedicles were inspected and found to be hemostatic. At this point the fascial incision was closed using 0 Vicryl suture in a running fashion subcutaneous tissue irrigated with copious amounts of normal saline and reapproximated with 3-0 Vicryl. Subcuticular stitch was used of 4-0 Monocryl suture to reapproximate the skin edge. Patient had infiltration of Exparel with quarter percent Marcaine prior to closure. Steri-Strips and sterile dressing were placed Patient was taken to the center general floor in stable condition with a Hernandes catheter draining clear yellow urine. EBL: 400 mL Complications: None apparent Pathology: left and right fallopian tube
--- NOTE | 2021-03-30 11:59 | W.ANESPOSTOP ---
Postoperative Evaluation Date, Time and Location Date Performed: 03/30/21 Time Performed: 10:00 Patient Location: Obstetrics Vital Signs Most Recent Imported Vital Signs: Most Recent Vital Signs Temp Pulse Resp BP Pulse Ox 37.0 C 93 H 16 119/67 99 03/30/21 10:25 03/30/21 11:50 03/30/21 11:50 03/30/21 11:50 03/30/21 11:50 Pain Score Most Recent Pain Score: Most Recent Pain Score Pain Level 0 03/30/21 06:26 Assessment Mental Status: Awake (Alert & Oriented to Patient Baseline) Airway and Respiratory Function: Patent airway with normal (patient baseline) respiratory exam Cardiovascular Function: Hemodynamically Stable Hydration Status: Adequately Hydrated Nausea & Vomiting: No Nausea or Vomiting Pain: Pt. Denies Any Pain Peripheral Nerve Block: Patient did not receive a nerve block Teaching Patient Teaching: Discussed Safe Use of Pain Medication Given Recent Anesthesia
[2021-03-30] MEDS: Lactated Ringers 1,000 ML 120 ML IV (12:30)
[2021-03-30 15:05] LABS: HCT 27.1 % (36.0-46.0); HGB 9.2 g/dL (11.2-15.7); MCH 30.7 pg (27.0-33.0); MCHC 33.9 % (32.0-36.0); MCV 90.3 fL (80-95); MPV 10.1 fL (8.0-11.0); Platelet Count 275 10^3/uL (130-400); RDW 12.8 % (11.7-14.6); RDW-SD 41.5 fL; WBC 20.39 10^3/uL (4.4-10.8)
--- NOTE | 2021-03-30 15:12 | NUR.NOTE ---
Addendum entered by Kelsey Murillo 03/30/21 15:37: Time of call was 1440. Dr. Phillips and Dr. Cline were both present immediately upon code being called. Original Note: Nursing Note: At about 1440, this RN heard Ronnell (, AUGER SUPERVISOR) yelling Cony Izaguirre! so I ran into pt room to find her unresponsive and with chunks of vomit on her gown. yelled to get suction which he was then attempting to connect. I pulled the code blue bar down and 02 applied via facemask. Within seconds pt was responsive and stated I just feel tired and I just fell asleep. Multiple staff came for assistance by this point. STAT labs and ultrasound ordered, vitals taken and WNL, fundus firm and 2 below, bleeding small. 02 running at 15 L/min. Hernandes emptied for output of 50 mL - urine dip showing SG 1.030. LR running and new bag hung with 500cc bolus started. Camila Goode CRNA inserted 16G saline lock in pt left hand and STAT labs taken, BP retaken to show 79/40. Pt vomited again at this time. Ultrasound cancelled and verbalized consent from pt to return to OR for laparotomy. Pt brought to OR via bed by this RN and Drs. Phillips and Marlyn. staying in room with .
[2021-03-30 15:15] LABS: ALT 20 U/L (14-59); AST 21 U/L (15-37); Alkaline Phosphatase 82 U/L (46-116); Anion Gap 9.3 mmol/L (3-11); BUN 9 mg/dL (7-18); Bilirubin, Total 0.4 mg/dL (0.2-1.0); CO2 21.7 mmol/L (21.0-32.0); CREATININE 0.5 mg/dL (0.55-1.02); Chloride 104 mmol/L (98-107); Glucose 108 mg/dL (74-106); Sodium 135 mmol/L (136-145); Total Protein 5.2 g/dL (6.4-8.2)
[2021-03-30] MEDS: Tranexamic Acid 1,000 MG/10 ML VIAL 1000 MG ×2 (15:22→15:46)
[2021-03-30] MEDS: Cellulose,Oxidized 4X8 1 PACKET MC (15:22)
[2021-03-30] MEDS: Carboprost 250 MCG/ML AMP (15:30)
[2021-03-30] MEDS: Normal Saline 100 ML 200 ML (15:44)
[2021-03-30 16:10] LABS: BE -3 mmol/L (-2-3); HCO3 22 mmol/L (22-26); pCO2 38 mmHg (35-45); pH 7.37 (7.35-7.45); pO2 155 mmHg (80-105)
[2021-03-30 16:12] LABS: sO2 > 99 % (95-98)
[2021-03-30] MEDS: Oxytocin/Normal Saline 30 UNIT/500 ML BAG 75 UNITS IV (16:37)
--- NOTE | 2021-03-30 16:49 | NUR.NOTE ---
Nursing Note: Call from Dora, RN - pt has been brought to PACU.
[2021-03-30 17:40] LABS: HCT 34.1 % (36.0-46.0); HGB 11.6 g/dL (11.2-15.7)
--- NOTE | 2021-03-30 18:10 | OBPPV_ITS ---
Date of service: 03/30/21 Time of Service: 18:11 Assessment and Plan Assessment and plan (1) Status post repeat low transverse section: Status: Acute Assessment and plan: Patient is postoperative day #0 status post repeat low transverse section which at the time was uncomplicated, however postoperatively had syncopal episode with episode of unresponsiveness and clinical signs and symptoms consistent with ongoing blood loss. She was taken emergently to the operating room for exploratory laparotomy and control of pelvic hemorrhage. Please see operative report dated 03/30/2021. (2) Postoperative anemia due to acute blood loss: Status: Acute (3) Hemoperitoneum: Status: Acute Subjective Subjective Interval history: Earlier this afternoon patient had an episode of feeling somewhat dizzy, had a syncopal episode and was unresponsive. Patient's and baby were at the bedside. Patient's did a jaw thrust airway patient vomited and had nursing was at the bedside. Nurse called a CODE BLUE which I heard overhead and presented immediately to the patient's room. At that time, she had vital signs with a pulse in the 90s, blood pressures 110/70s. Urine output since the time of surgery had been approximately 200 cc. Patient had been feeling well and at that point stated that she only felt tired. Was called that the entire code team responded as did myself, Dr. Cline, nurse call worker person Thea Willis, anesthesia. Labs were ordered, at that point differential diagnosis was for pulmonary embolus, however unlikely due to normal O2 sat and absence of tachycardia versus intra-abdominal ongoing blood loss. Up until that point in the afternoon patient had been stable, eating, breast-feeding without difficulty, with minimal pain or discomfort. During the process of her ev aluation, second IV was started per anesthesia labs were drawn, patient had a second syncopal episode with a blood pressure of 70/40. Abdomen at that point was somewhat distended and decision was made to take her emergently back to the operating room. I called lab to have the Medos with 2 units of packed red blood cells anesthesia in OR crew were notified and verbal consent obtained for the patient and family for laparotomy and control of suspected hemorrhage. Please see nursing notes and operative report dictated this day. Exam Physical Exam Vital signs: Temp Pulse Resp BP Pulse Ox 98.1 F 89 13 117/77 95 03/30/21 17:05 03/30/21 17:05 03/30/21 17:05 03/30/21 17:05 03/30/21 17:05 Constitutional Constitutional: somnolent Comments: Pale, quiet, denied pain. States felt tired Respiratory Exam Respiratory Exam: Normal Cardiovascular Exam Cardiovascular Exam: Normal Abdominal Exam Abdomen: Tender Comments: Moderately distended. Incision clean dry and intact Fundal Exam Comment: Fundus was firm, 3 cm below the umbilicus Extremities Exam Extremity Exam: negative Calf Tenderness and Edema Results Hemoglobin/Hematocrit: Hgb 11.6 g/dL (11.2-15.7) D 03/30/21 17:33 Hct 34.1 % (36.0-46.0) L D 03/30/21 17:33 Abnormal Lab Findings: Abnormal Labs 03/30/21 03/30/21 03/30/21 14:50 14:50 16:11 WBC 20.39 H RBC 3.00 L Hgb 9.2 L D Hct 27.1 L D ABG pO2 155 H ABG O2 Saturation > 99 H ABG Base Excess -3 L Sodium 135 L Creatinine 0.5 L Glucose 108 H Calcium 8.0 L Total Protein 5.2 L Albumin 2.0 L 03/30/21 17:33 WBC RBC Hgb Hct 34.1 L D ABG pO2 ABG O2 Saturation ABG Base Excess Sodium Creatinine Glucose Calcium Total Protein Albumin
--- NOTE | 2021-03-30 18:15 | RT.EKG_ITS ---
APPROVED REPORT Exam: Resting ECG Reason for Exam: R/O ST ELEVATION NOTE IN TELE LEAD II Patient Location: I HR:98 bpm ECG Measurements Heart Rate 98 AXIS WY 139 P 53 QRSd 67 QRS 64 QT 321 T 39 QTc 409 Conclusion Sinus rhythm...normal P axis, V-rate 60- 99
--- NOTE | 2021-03-30 18:20 | ROE_ITS ---
Date of service: 03/30/21 Time of Service: 18:20 Operative Note Operative Note DATE OF PROCEDURE: 03/30/21 PRE-OP DIAGNOSIS: Suspected pelvic hemorrhage POST-OP DIAGNOSIS: same PROCEDURE: Exploratory laparotomy with control of pelvic hemorrhage SURGEON: Julia Phillips ASSISTING SURGEON: Polly Cline ANESTHESIA TYPE: General LMA/ETT Refer to Anesthesia Record ESTIMATED BLOOD LOSS: 1,000 PATHOLOGY: none sent (1. Left fallopian tube #2 right fallopian tube) COMPLICATIONS: None Patient was transported to: PACU Patient's condition: stable Indications: Postoperative hypotension and suspected hemoperitoneum Findings: 1000 cc of blood in the abdomen. Intact uterine incision. Intact fallopian tube pedicles. Small arterial bleed at the vesicouterine peritoneum in proximity to previous bladder flap with denuded lower uterine segment and regional ecchymosis. No evidence of broad ligament or retroperitoneal hematoma. No other noted intra-abdominal or pelvic trauma. Procedure Description: After acute evaluation of the patient on the [facility] due to an episode of syncope and subsequent hypotension concern was for ongoing blood loss. Patient had laboratory studies drawn, second IV, large-bore placed and was taken emergently to the operating room after verbal consent obtained from patient and family for exploratory laparotomy for suspected suspected pelvic hemorrhage. Preoperative hemoglobin was 9.1. In the operating suite she was placed in the dorsal supine position and endotracheal intubation performed for the administration of general anesthesia with ease. She received 2 g of Ancef for infection prophylaxis. She was prepped and draped in the usual sterile fashion. She had a Hernandes catheter inserted previously. Her Pfannenstiel skin incision was opened subcutaneous tissue opened and the fascial incision reopened after cutting previously placed suture. There was noted to be gross blood within the abdomen. The abdomen was cleared of clot and a systematic inspection of all surfaces undertaken. Uterine incision was closed appropriately and hemostatic right and left fallopian tube pedicles were hemostatic. There was noted to be significant ecchymosis and what appeared to be a disruption at the peritoneal edge of the bladder flap. After meticulous irrigation and inspection there was noted to be a tiny arterial bleeder which was oversewn with 3-0 Vicryl suture in a [id number] fashion. At this point the abdomen was irrigated with copious amounts of normal saline patient was placed in Trendelenburg and reverse Trendelenburg in order to clear all clot from the gutters and liver edge. And again the area of concern was inspected. Pressure in place for a significant amount of time. As there is noted to be a small amount of ooze over the lower uterine segment and in the area of ecchymosis a [place] stitch was placed around the left uterine arteries. This was in order to decrease the potential for ongoing blood loss. In order to appropriately monitor the incision an R[place]Br[place] self- retaining retractor was placed. Bowel was packed away. Over the course of approximately 20 minutes the previous uterine incision, fallopian tube pedicles, and area of concern at the bladder flap were all inspected, monitored, and found to be hemostatic. Surgicel was placed over the denuded lower uterine segment in order to assist in ongoing hemostasis. At this point all sponges and self- retaining retractor were removed. Fascial incision was then closed using 0 Vicryl suture. Subcu was reapproximated with 3-0 Vicryl suture in a simple interrupted fashion. The skin edge at this point was reapproximated with a stapling device. Patient tolerated the procedure without difficulty. Vital signs normalized. Hernandes catheter was in place draining concentrated yellow urine. She was taken to the recovery room in stable condition. During her time in the OR, she did receive 2 units of packed red blood cells, IV Pitocin, 1 dose of Hemabate IM, and 1 dose of TXA. She had fluid management and blood pressure management per anesthesia. EBL: 1000 cc Complications: Hemoperitoneum per from previous section with suspicion of the area over the left aspect of the lower uterine segment in conjunction with the bladder flap. Single small arterial bleeder was noted. My suspicion is that there was an area at the peritoneal edge that had previously been tamponaded which opened and allowed a significant pelvic hemorrhage. No other source of bleeding was noted. Fluids: Crystalloid, blood products, cryoprecipitate per anesthesia. Please see anesthesia note Pathology: None sent
--- NOTE | 2021-03-30 19:15 | W.PM.PROGNOT ---
Date of Service Date of service: 03/30/21 Time of Service: 19:15 Subjective Subjective Patient reports: no new complaints, feels better and pain is less Interval history since last seen: Looks well. VS stable. Labs orders. Mild ST elevation on telemetry and EKG. Will get labs and serial toponins out of an abundance of caution KJ Objective Last Vital Signs Temp 98.1 F 03/30/21 17:25 Pulse 97 H 03/30/21 18:39 Resp 16 03/30/21 18:39 BP 107/71 03/30/21 18:39 Pulse Ox 95 03/30/21 18:39 Laboratory Results - last 24 hr 03/30/21 03/30/21 03/30/21 14:50 14:50 16:11 WBC 20.39 H RBC 3.00 L Hgb 9.2 L D Hct 27.1 L D MCV 90.3 MCH 30.7 MCHC 33.9 RDW 12.8 Plt Count 275 MPV 10.1 ABG pH 7.37 ABG pCO2 38 ABG pO2 155 H ABG HCO3 22 ABG Total CO2 Not Applicable ABG O2 Saturation > 99 H ABG Base Excess -3 L Sodium 135 L Potassium 4.0 Chloride 104 Carbon Dioxide 21.7 Anion Gap 9.3 BUN 9 Creatinine 0.5 L Estimated GFR/1.73 m2 >= 60.00 Glucose 108 H Calcium 8.0 L Total Bilirubin 0.4 AST 21 ALT 20 Alkaline Phosphatase 82 Total Protein 5.2 L Albumin 2.0 L 03/30/21 17:33 WBC RBC Hgb 11.6 D Hct 34.1 L D MCV MCH MCHC RDW Plt Count MPV ABG pH ABG pCO2 ABG pO2 ABG HCO3 ABG Total CO2 ABG O2 Saturation ABG Base Excess Sodium Potassium Chloride Carbon Dioxide Anion Gap BUN Creatinine Estimated GFR/1.73 m2 Glucose Calcium Total Bilirubin AST ALT Alkaline Phosphatase Total Protein Albumin
[2021-03-30 19:42] LABS: Anion Gap 9.2 mmol/L (3-11); BUN 10 mg/dL (7-18); CO2 21.8 mmol/L (21.0-32.0); CREATININE 0.5 mg/dL (0.55-1.02); Calcium 7.9 mg/dL (8.5-10.1); Chloride 103 mmol/L (98-107); Glucose 91 mg/dL (74-106); Magnesium 1.6 mg/dL (1.8-2.4); Potassium 4.7 mmol/L (3.5-5.1); Sodium 134 mmol/L (136-145)
[2021-03-30 20:02] LABS: Troponin I < 0.05 ng/mL (<0.06)
--- NOTE | 2021-03-30 21:00 | OBPPV_ITS ---
Date of service: 03/30/21 Time of Service: 21:00 Assessment and Plan Assessment and plan (1) Status post repeat low transverse section: Status: Acute Assessment and plan: Doing well after return to OR for control of bleeding (2) Status post laparotomy: Status: Acute Assessment and plan: Brisk urine output. Vitals are stable. Serial labs ordered. Strict I&O. Pain control as neede (3) Hypomagnesemia: Status: Acute Assessment and plan: will replace with 2 grams over 1 hour (4) Abnormal finding on EKG: Status: Acute Assessment and plan: Subtle ST elevation. No symptoms, 1st troponin is negative Subjective Subjective Interval history: Feels much better. No vertigo, No pain. No CP or SOB Patient comments: No complaints and Pain well controlled Patient's Mood: Tolerating clear liquids [place] baby status: Doing well and Nursing well [place] feeding status: Exclusively breast feeding Exam Physical Exam Vital signs: Temp Pulse Resp BP Pulse Ox 97.5 F L 106 H 18 110/70 98 03/30/21 19:45 03/30/21 20:15 03/30/21 20:15 03/30/21 20:15 03/30/21 20:15 Constitutional Constitutional: no acute distress and chronically ill appearing HEENT Exam HEENT Exam: Normal Respiratory Exam Respiratory Exam: Normal Cardiovascular Exam Cardiovascular Exam: Normal Abdominal Exam Abdomen: Tender Comments: Soft, less distended Fundal Exam Fundus: Firm Detailed Neurological Exam Neurological: Present alert, oriented X3 and CN II-XII intact Results Hemoglobin/Hematocrit: Hgb 11.6 g/dL (11.2-15.7) D 03/30/21 17:33 Hct 34.1 % (36.0-46.0) L D 03/30/21 17:33 Abnormal Lab Findings: Abnormal Labs 03/30/21 03/30/21 03/30/21 14:50 14:50 16:11 WBC 20.39 H RBC 3.00 L Hgb 9.2 L D Hct 27.1 L D ABG pO2 155 H ABG O2 Saturation > 99 H ABG Base Excess -3 L Sodium 135 L Creatinine 0.5 L Glucose 108 H Calcium 8.0 L Magnesium Total Protein 5.2 L Albumin 2.0 L 03/30/21 03/30/21 03/30/21 17:33 19:15 19:15 WBC RBC Hgb Hct 34.1 L D ABG pO2 ABG O2 Saturation ABG Base Excess Sodium 134 L Creatinine 0.5 L Glucose Calcium 7.9 L Magnesium 1.6 L Total Protein Albumin
[2021-03-30] MEDS: Ibuprofen 600 MG TAB PO (21:46)
[2021-03-30] MEDS: Lactated Ringers 1,000 ML 125 ML IV (21:46)
[2021-03-30] MEDS: Docusate Sodium 100 MG CAP PO (21:46)
[2021-03-30] MEDS: MAGNESIUM SULFATE 2 GM/50 ML BAG IVPB (21:46)
[2021-03-30 23:21] LABS: HCT 28.6 % (36.0-46.0); HGB 9.8 g/dL (11.2-15.7); MCH 30.1 pg (27.0-33.0); MCHC 34.3 % (32.0-36.0); MCV 87.7 fL (80-95); MPV 10.3 fL (8.0-11.0); Platelet Count 209 10^3/uL (130-400); RBC 3.26 10^6/uL (3.93-5.22); RDW 13.7 % (11.7-14.6); RDW-SD 43.8 fL; WBC 22.88 10^3/uL (4.4-10.8)
[2021-03-30 23:36] LABS: Troponin I < 0.05 ng/mL (<0.06)
[2021-03-31] VITALS (10 sets, daily range): BP systolic 115–134; BP diastolic 67–84; PULSE 100–121; RESP 16; TEMP 36.6–36.9; O2SAT 95–99
[2021-03-31 03:28] LABS: Troponin I < 0.05 ng/mL (<0.06)
[2021-03-31] MEDS: Ibuprofen 600 MG TAB PO ×3 (06:20→22:04)
[2021-03-31] MEDS: Acetaminophen 325 MG TAB 650 MG PO ×4 (06:21→22:04)
[2021-03-31 06:27] LABS: Absolute Basophil Count 0.03 10^3/uL (0.0-0.2); Absolute Lymphocyte Count 1.24 10^3/uL (1.2-3.4); Absolute Neutrophil Count 14.17 10^3/uL (1.2-6.7); Basophils % 0.2; Eosinophils % 0.1; HCT 24.7 % (36.0-46.0); HGB 8.5 g/dL (11.2-15.7); Immature Grans % 0.6; Lymphocytes % 7.4; MCH 30.4 pg (27.0-33.0); MCHC 34.4 % (32.0-36.0); MCV 88.2 fL (80-95); MPV 9.9 fL (8.0-11.0); Monocytes % 6.8; Neutrophils % 84.9; Nucleated RBC 0 %; Platelet Count 206 10^3/uL (130-400); RDW 13.9 % (11.7-14.6); RDW-SD 44.6 fL; WBC 16.69 10^3/uL (4.4-10.8)
[2021-03-31 06:28] LABS: Absolute Eosinophil Count 0.02 10^3/uL (0.0-0.7); Absolute Monocyte Count 1.13 10^3/uL (0.1-0.8)
[2021-03-31 06:42] LABS: ALT 14 U/L (14-59); AST 18 U/L (15-37); Albumin 1.9 g/dL (3.4-5.0); Alkaline Phosphatase 68 U/L (46-116); Anion Gap 8.7 mmol/L (3-11); BUN 8 mg/dL (7-18); Bilirubin, Total 0.6 mg/dL (0.2-1.0); CO2 24.3 mmol/L (21.0-32.0); CREATININE 0.5 mg/dL (0.55-1.02); Calcium 7.8 mg/dL (8.5-10.1); Chloride 105 mmol/L (98-107); Glucose 90 mg/dL (74-106); Sodium 138 mmol/L (136-145); Total Protein 5.1 g/dL (6.4-8.2)
[2021-03-31 06:46] LABS: INR 0.9 (0.9-1.1); PTT Activated 23.4 sec (21.0-27.5); Prothrombin Time 9.4 sec (9.3-11.0)
--- NOTE | 2021-03-31 08:04 | W.PM.OBPNV1 ---
Date of service: 03/31/21 Time of Service: 08:04 Assessment and Plan Assessment and plan (1) Postoperative anemia due to acute blood loss: Status: Acute Assessment and plan: will repeat H/H at 1600 today. Assist with OOB. If symptomatic will transfuse. (2) Status post repeat low transverse section: Status: Acute Assessment and plan: Continue to provide support. Discontinue telemetry, david and IV fluids. Subjective Subjective Interval history: Events since RLTCS 03/30/21. Pt developed N/V and hypotension yesterday afternoon and returned to the OR for laparotomy and evacuation of hemoperitoneum. Site of bleeding located and suture ligated. Pt had received 2 units of PRBC and Cryoprecipitate while in the OR. She has remained on the for postop care with cardiac telemetry. Evaluation of ST segment elevation was noted and cardiac troponin levels were neg. David has remained in place and urine output has been increasing. Patient comments: Pain well controlled and Tolerating diet Patient's Mood: Situation surrounding PP hemorrhage and return to the OR discussed with pt by Dr. Phillips this am. Tearful during the conversation. [place] baby status: Doing well, Nursing well, Nursery and Strong Bonding Observed [place] feeding status: Exclusively breast feeding Exam Physical Exam Vital signs: Temp Pulse Resp BP Pulse Ox 98.1 F 100 H 16 125/81 97 03/31/21 07:42 03/31/21 07:42 03/31/21 07:42 03/31/21 07:42 03/31/21 07:42 Constitutional Constitutional: no acute distress Detailed HEENT Exam Head: Present normocephalic Respiratory Exam Respiratory Exam: Normal Cardiovascular Exam Cardiovascular Exam: Normal Abdominal Exam Abdomen: Tender Fundal Exam Fundus: Below Umbilicus and Firm Rectal Exam Rectal Exam: Not Done Extremities Exam Extremity Exam: Normal and Edema (mild pretibial. SCDs in place) Back/Spine/Pelvis Exam Back Exam: Not Done Skin Exam Skin Exam: Normal (incision covered with dressing.) Psychiatric Exam Psychiatric Exam: Normal Results Hemoglobin/Hematocrit: Hgb 8.5 g/dL (11.2-15.7) L 03/31/21 06:00 Hgb Cancelled 03/31/21 06:00 Hct 24.7 % (36.0-46.0) L 03/31/21 06:00 Hct Cancelled 03/31/21 06:00 Abnormal Lab Findings: Abnormal Labs 03/30/21 03/30/21 03/30/21 14:50 14:50 16:11 WBC 20.39 H RBC 3.00 L Hgb 9.2 L D Hct 27.1 L D Absolute Neutrophils Absolute Monocytes ABG pO2 155 H ABG O2 Saturation > 99 H ABG Base Excess -3 L Sodium 135 L Creatinine 0.5 L Glucose 108 H Calcium 8.0 L Magnesium Total Protein 5.2 L Albumin 2.0 L 03/30/21 03/30/21 03/30/21 17:33 19:15 19:15 WBC RBC Hgb Hct 34.1 L D Absolute Neutrophils Absolute Monocytes ABG pO2 ABG O2 Saturation ABG Base Excess Sodium 134 L Creatinine 0.5 L Glucose Calcium 7.9 L Magnesium 1.6 L Total Protein Albumin 03/30/21 03/31/21 03/31/21 23:10 06:00 06:00 WBC 22.88 H 16.69 H RBC 3.26 L 2.80 L Hgb 9.8 L 8.5 L Hct 28.6 L 24.7 L Absolute Neutrophils 14.17 H Absolute Monocytes 1.13 H ABG pO2 ABG O2 Saturation ABG Base Excess Sodium Creatinine 0.5 L Glucose Calcium 7.8 L Magnesium Total Protein 5.1 L Albumin 1.9 L Procedure Procedures: Control of Hemorrhage , Will f/u with pt later today to eval for symptoms of hypovolemia / Evacuation of Hematoma (laparotomy. hemoperitoneum at time of return to surgery.) , Bleeding from L lateral margin of bladder flap located and suture ligated. / Transfusion (H/H decreasing but not requiring additional transfusion at this time.) , indication for transfusion: active blood loss.
[2021-03-31 17:00] LABS: HCT 25.8 % (36.0-46.0); HGB 8.7 g/dL (11.2-15.7)
[2021-03-31] MEDS: Docusate Sodium 100 MG CAP PO (22:04)
[2021-04-01 00:40] VITALS: BP 136/76; PULSE 118; RESP 16; TEMP 36.7; O2SAT 96
[2021-04-01] MEDS: Acetaminophen 325 MG TAB 650 MG PO ×2 (05:02→11:06)
[2021-04-01] MEDS: Ibuprofen 600 MG TAB PO ×2 (05:02→11:06)
[2021-04-01 06:15] VITALS: BP 129/80; PULSE 97; RESP 16; TEMP 36.6; O2SAT 99
[2021-04-01 07:35] VITALS: BP 124/83; PULSE 97; RESP 16; TEMP 36.7; O2SAT 99
--- NOTE | 2021-04-01 07:35 | W.PM.OBDISCH ---
Date of service: 04/01/21 Time of Service: 07:38 DS: Diagnosis Discharge Diagnosis (1) Postoperative anemia due to acute blood loss: Status: Acute (2) Status post repeat low transverse section: Status: Acute (3) Encounter for sterilization: Status: Acute Discharge Plan Disposition Patient Disposition: HOME Condition: Improving Discharge Details Reason For Visit: DELIVERY Admit Date/Time: 03/30/21 06:00 Admit Provider: Julia Phillips Attending Provider: Julia Phillips Primary Care Provider: Abhijit Nayak Hospital Course Hospital Course: Pt is a 40yo G2 now P2 female who was admitted in am on 03/30/21 and underwent an elective repeat delivery and bilateral salpingectomy of a viable female infant who will be named Nakita. Her postop course was complicated by hypotension and hypovolemia that prompted a return to the OR on the afternoon of 03/30/21 where ~ 1 liter of blood and clots was aspirated from her abdomen and pelvis. The source of the bleeding was located at L lateral margin of the bladder flap. It was suture ligated and hemostasis was achieved. Pt received 2 units of PRBC and 1 unit of Cryoprecipitate intraop. She remained hospitalized until POD 2 and she was discharged to home. VS stable. Tolerating regular diet. successfully. Performing ADLs without assistance. H/H had stabilized at 8.7/25.8. Plan is to see pt in f/u 04/05/21 for staple removal. She declines narcotics for pain control and instead will exclusively use Acetaminophen and Ibuprofen. Home Meds and New Rx's Prescriptions: No Action prenat.vits,muna,iul-xsih-ujivh [ Vitamin] tablet 1 tab PO DAILY RF: 0 lactobacillus combination no.8 [Adult Probiotic] 3 billion cell capsule 3,000 mmu cells PO DAILY RF: 0 Fish Oil 120-180-500 mg capsule 1 cap PO DAILY RF: 0 aspirin [Adult Low Dose Aspirin] 81 mg tablet,delayed release (DR/EC) 162 mg PO DAILY RF: 0 (DME) breast pump Device See Rx Instructions .ROUTE .MEDSUPPLY Qty: 1 RF: 0 Discharge Instructions Additional Instructions: Dr Cline will remove your payton on 04/05/21. Please call the office to make an appointment. Stand Alone Forms: BC Instructions, BC Discharge Instruc Activity:: Activity as Tolerated Equipment/Supplies:: No Equipment Needed Diet:: As Tolerated Discharge Orders Discharge Orders: Discharge Order (Routine); Ordered 04/01/21 Ordered By: Polly Cline Procedure Procedures: Control of Hemorrhage (return to the OR and laparotomy to ligate bleeding blood vessel at the L bladder flap.) , bilateral salpingectomy / Transfusion (2 units of PRBC and one unit of cryoprecipitate intra op.) , indication for transfusion: anemia secondary PP hemorrhage after elective repeat C/S and bilateral salpingectomy OB:DS Summary Summary Episiotomy Description: None Contraception Discussed Contraception Discussed: Yes (performed during this hospitalization) Contraceptive Plan: Tubal Ligation, Gender-Baby A: Female weight: 7 lb 5.991 oz Status at Discharge Functional status at discharge: independent ambulation Overall status at discharge: patient is progressing back to baseline Mental Status: mental status grossly normal Speech and Movement: speech and movement normal Mood: congruent mood Affect: normal affect Exam Physical Exam Vital signs: Temp Pulse Resp BP Pulse Ox 97.9 F 97 H 16 129/80 99 04/01/21 06:15 04/01/21 06:15 04/01/21 06:15 04/01/21 06:15 04/01/21 06:15 Vital Signs Reviewed: Yes Notable Details: Stabilization of Hgb last evening. Repeat labs discontinued. Constitutional Constitutional: no acute distress HEENT Exam HEENT Exam: Normal Neck Exam Neck Exam: Not Done Respiratory Exam Respiratory Exam: Normal Cardiovascular Exam Cardiovascular Exam: Normal Abdominal Exam Comments: non-tender. incision intact paytno in place. Fundal Exam Fundus: Below Umbilicus and Firm Rectal Exam Rectal Exam: Not Done Extremities Exam Extremity Exam: Normal, Normal Capillary Refill and Warm to Touch Back/Spine/Pelvis Exam Back Exam: Not Done Skin Exam Skin Exam: Normal Neurological Exam Neurological Exam: Not Done Psychiatric Exam Psychiatric Exam: Normal [facility] Medical History (Updated 04/01/21 @ 07:37 by Polly Cline MD) Hemoperitoneum History of pre-eclampsia HELLP syndrome Postoperative anemia due to acute blood loss Surgical History (Updated 04/01/21 @ 07:37 by Polly Cline MD) Encounter for sterilization 03/30/21. Bilateral salpingectomy at time of RLTCS Status post laparotomy Status post repeat low transverse section Repeat section with bilateral salpingectomy. Subsequent intra-abdominal hemorrhage with return to the OR for control of hemorrhage Family History Sister Endometriosis Paternal Grandmother Diabetes type 2, obese Mother Fibroid uterus Social History Smoking/Tobacco Use Status: Never Smoking risk assessment performed?: Yes Alcohol Intake: never Substance use type: does not use Do you think of yourself as: lesbian/wong/homosexual Current gender identity: female Female Reproductive History Menstrual Age of Menarche: 16 control method: none History History 2 Para 1 Hx # Term Pregnancies 1 Multiple births 0 Hx # Pregnancies 0 Ectopic pregnancies 0 AB induced 0 Hx Number of Living Children 1 AB spontaneous 0 Past Pregnancies Del. Date GA/Weeks # Outcome Route Wgt Sex Labor Lgth Anesthesia Location Prov Complic 02/21/19 No Successful 7 lb 13 oz Male [facility] Delivery Date: 02/21/19 IOL at 41 weeks for post dates and HELLP syndrom with elevated liver enzymes. Baby delivered per Primary Low Transverse Section, without complications. Difficult extraction of infant and forceps were applied. Marcella Luong DS: Data Vitals/I&O Vitals and I&O: Vital Signs Temperature 97.9 F 04/01/21 06:15 Temperature Source Oral 03/30/21 13:30 Pulse 97 H 04/01/21 06:15 Pulse Rhythm Regular 03/31/21 15:50 Respiratory Rate 16 04/01/21 06:15 Blood Pressure 129/80 04/01/21 06:15 Blood Pressure Mean 96 04/01/21 06:15 Pulse Oximetry 99 04/01/21 06:15 Respiratory End-tidal CO2 31 03/30/21 16:53 Oxygen Delivery Method Room Air 04/01/21 06:15 Oxygen Flow Rate 0 04/01/21 06:15 Pain Level 3 04/01/21 06:15 Comment 03/31/21 02:50 Intake & Output 03/31/21 03/31/21 04/01/21 11:59 23:59 11:59 Intake Total 600 / 850 250 / 850 1000 / 1000 Output Total 2550 / 7040 4490 / 7040 Balance -1950 / -6190 -4240 / -6190 1000 / 1000 Intake: IV 1000 / 1000 Oral 600 / 850 250 / 850 Output: Urine 2550 / 7040 4490 / 7040 Other: Urine Color Yellow Yellow Urine Appearance Hematuria Urine Odor None Comment Urimiter emptied Patient had emptied hat, did not see color Voiding Methods Toilet Toilet Data Completed and Pending Labs on day of discharge: Labs from last 24 hours 03/31/21 03/30/21 16:55 16:11 Hgb 8.7 L Hct 25.8 L ABG Sample Site
[2021-04-01] MEDS: Docusate Sodium 100 MG CAP PO (09:01)
[2021-04-01 11:50] VITALS: RESP 16; O2SAT 97
[2021-04-01 12:00] VITALS: BP 126/81; PULSE 111; RESP 16; TEMP 36.8; O2SAT 97
== END 2021-04-01 13:55 | disposition home or self-care (01) | DRG 784 ==
PROVIDERS: Nurse Anesthetist, Certified Registered; Obstetrics & Gynecology Gynecology; Admitting Provider Obstetrics & Gynecology; PCP Family Medicine; Visit Provider Obstetrics & Gynecology
PROC: 10D00Z1 Extraction of Products of Conception, Low, Open Approach (ICD-10-PCS; CPT 59514; principal; 2021-03-30 07:30)
DX: O34.211 Maternal care for low transverse scar from previous cesarean delivery (principal); D62 Acute posthemorrhagic anemia; O99.284 Endocrine, nutritional and metabolic diseases complicating childbirth; Z37.0 Single live birth; Z3A.39 39 weeks gestation of pregnancy; E05.80 Other thyrotoxicosis without thyrotoxic crisis or storm; Z30.2 Encounter for sterilization; O90.81 Anemia of the puerperium; N85.8 Other specified noninflammatory disorders of uterus; R55 Syncope and collapse; O99.893 Other specified diseases and conditions complicating puerperium; E83.42 Hypomagnesemia; R94.31 Abnormal electrocardiogram [ECG] [EKG]; I95.89 Other hypotension
CPT/HCPCS: 59514; 58700; 35840; 36415; 80048; 80053; 82805; 85027; 83735; 84484; 85014; 85018; 85025; 85610; 85730; 88302; 93005; 93010; J0131; J0690; J1885; J2250; J2370; J2405; J2704; J3010; P9012; P9016

== ENCOUNTER 2021-04-26 04:17 | Outpatient (CLI) | payer OTHER, SELFPAY ==
[2021-04-26 10:47] LABS: FREE T4 1.55 ng/dL (0.76-1.46)
[2021-04-26 17:06] LABS: T3,Free 7.5 pg/mL (2.8-5.3)
== END 2021-04-26 04:18 | disposition home or self-care (01) ==
LOC: LBO 04:18
PROVIDERS: PCP Family Medicine; Visit Provider Internal Medicine
DX: E05.90 Thyrotoxicosis, unspecified without thyrotoxic crisis or storm (principal)
CPT/HCPCS: 36415; 84439; 84481

== ENCOUNTER 2021-07-25 04:03 | Outpatient (CLI) | payer OTHER, SELFPAY ==
[2021-07-25 09:06] LABS: TSH < 0.01 uIU/mL (0.36-3.74)
[2021-07-25 17:06] LABS: T3, Total 195 ng/dL (97-169)
== END 2021-07-25 04:04 | disposition home or self-care (01) ==
LOC: LBO 04:03
PROVIDERS: PCP Family Medicine; Visit Provider Internal Medicine
DX: E05.90 Thyrotoxicosis, unspecified without thyrotoxic crisis or storm (principal)
CPT/HCPCS: 36415; 84439; 84443; 84480